=== PATIENT | female | born 1960 | race Caucasian/White ===

== ENCOUNTER 2019-09-10 12:47 | Emergency (ER) | payer MEDICARE, MEDICAID, SELFPAY ==
--- NOTE | ~2019-09-10 | XR_ITS ---
EXAMINATION: [id number] DATE: 09/10/2019 13:24 INDICATION: Left chest pain. TECHNIQUE: A frontal view of the chest and 3 views of the left ribs were obtained. COMPARISON: Chest 2 views 06/21/2015 FINDINGS: The chest demonstrates clear lungs without pneumonia, pleural effusion, or pneumothorax. Th e heart size is normal. There is an old healed fracture of left seventh rib. There is an acute fractu re of left ninth rib. IMPRESSION: 1. Acute fracture of left ninth rib. Reviewed, dictated and finalized at location A.
[2019-09-10 13:04] VITALS: BP 126/74; PULSE 73; RESP 20; TEMP 37.2; O2SAT 98
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
== END 2019-09-10 13:48 | disposition home or self-care (01) ==
PROVIDERS: Emergency Provider Nurse Practitioner Family
DX: S22.32XA Fracture of one rib, left side, initial encounter for closed fracture (principal); F17.200 Nicotine dependence, unspecified, uncomplicated; Z86.73 Personal history of transient ischemic attack (TIA), and cerebral infarction without residual deficits; E78.00 Pure hypercholesterolemia, unspecified; I10 Essential (primary) hypertension; J44.9 Chronic obstructive pulmonary disease, unspecified; K21.9 Gastro-esophageal reflux disease without esophagitis; M19.90 Unspecified osteoarthritis, unspecified site; E03.9 Hypothyroidism, unspecified; F31.9 Bipolar disorder, unspecified; F41.9 Anxiety disorder, unspecified; G40.909 Epilepsy, unspecified, not intractable, without status epilepticus; X58.XXXA Exposure to other specified factors, initial encounter
CPT/HCPCS: 71101; 99213; G0463

== ENCOUNTER 2021-06-23 09:56 | Emergency (ER) | payer MEDICARE, MEDICAID, SELFPAY ==
--- NOTE | ~2021-06-23 | XR_ITS ---
XR foot RT min 3V DATE: 06/23/2021 10:21 INDICATION: Inversion injury. Generalized right ankle and foot pain TECHNIQUE: 5 views COMPARISON: None FINDINGS: There is an old healed fracture deformity of the fifth metatarsal shaft. Plantar calcaneal enthesopathy. No recent fracture or dislocation, periosteal reaction or bone destruction. IMPRESSION: No recent fracture or dislocation Plantar calcaneal enthesopathy Old healed right fifth metatarsal shaft fracture Reviewed, dictated and finalized at location A.
--- NOTE | ~2021-06-23 | XR_ITS ---
XR ankle RT min 3V DATE: 06/23/2021 10:21 INDICATION: Inversion injury. Generalized right ankle and foot pain. TECHNIQUE: 4 views of right ankle COMPARISON: None FINDINGS: Plantar calcaneal enthesopathy. No fracture or dislocation of the ankle or disruption of the ankle mortise. No periosteal reaction or bone destruction. IMPRESSION: No fracture or dislocation of the ankle Plantar calcaneal enthesopathy Reviewed, dictated and finalized at location A.
--- NOTE | 2021-06-23 10:01 | ED.LOWEXIN ---
HPI - Extremity Injury (Lower) General Chief Complaint: Extremity Injury, Lower Stated Complaint: Fall injury/Right Foot Time Seen by Provider: 06/23/21 10:01 Source: patient and RN notes reviewed History of Present Illness HPI Narrative: Patient is a 61-year-old female who presents the urgent care with complaints of right foot and ankle pain. Patient states that at 730 last night she rolled the right foot/ankle and fell. Patient denies of any other injuries from the fall. States that she is taking Tylenol for the pain. No other acute complaints. No acute distress noted. Patient aware of the plan of care. Some parts of this dictation were generated by voice recognition software and may contain typographical and/or grammatical inaccuracies. Related Data Home Medications Medication Instructions Recorded Confirmed levothyroxine 09/10/19 omeprazole 09/10/19 amitriptyline 25 mg PO BID 06/23/21 06/23/21 diltiazem HCl [DILT-XR] 120 mg PO DAILY 06/23/21 06/23/21 gabapentin [Neurontin] 600 mg PO DAILY 06/23/21 06/23/21 methocarbamol 500 mg PO BID 06/23/21 06/23/21 pravastatin 20 mg PO DAILY 06/23/21 06/23/21 Allergies Allergy/AdvReac Type Severity Reaction Status Date / Time carbamazepine Allergy Unknown Unknown Verified 06/23/21 10:13 divalproex sodium Allergy Unknown Unknown Verified 06/23/21 10:13 ibuprofen Allergy Unknown Unknown Verified 06/23/21 10:13 NSAIDS (Non-Steroidal Allergy Unknown Unknown Verified 06/23/21 10:13 Anti-Inflamma Penicillins Allergy Unknown Unknown Verified 06/23/21 10:13 NAPROXEN SODIUM Allergy Unknown Unknown Uncoded 06/23/21 10:13 PHENYTOIN SODIUM Allergy Unknown Unknown Uncoded 06/23/21 10:13 Review of Systems Review of Systems: CONSTITUTIONAL: Denies fever, chills, or sweats. EYES: Denies visual changes, redness, or discharge. ENT: Denies rhinorrhea, congestion, sore throat, or otalgia. CARDIOVASCULAR: Denies chest pain, palpitations, or edema. RESPIRATORY: Denies cough or dyspnea. GASTROINTESTINAL: Denies abdominal pain, nausea, vomiting, or diarrhea. GENITOURINARY: Denies dysuria or hematuria. SKIN: Denies rash or itching. MUSCULOSKELETAL: Reports of pain and swelling to the right ankle and foot NEUROLOGIC: Denies headache, numbness, or weakness. All other systems reviewed are negative, except as documented in HPI. [facility] Family History Family History (Updated 10/21/15 @ 23:21 by DOCTOR UNKNOWN) Mother Family history of suicide Patient's mother is Sibling Patient's sister is in good health Patient's brother is in good health Family history of heart disease in male family member before age 55 Father Family history of chronic obstructive pulmonary disease Family history of diabetes mellitus in first degree relative Family history of heart disease in male family member before age 55 Other Carcinoma of colon Family history of cardiovascular disease Social History Social History Smoking status: Current every day smoker Alcohol intake: current Comments At the time of my signature, I reviewed and agree with the nursing past medical, surgical, social, and family history. There is no relevant family history pertinent to the patient complaint. Exam Narrative: GENERAL: This is a well-nourished, well-developed patient, in no apparent distress. HEAD: normocephalic, atraumatic. EYES: PERRL. Sclera clear/white. Vision is grossly intact. EARS: External ears normal NOSE: External nose normal with no obvious nasal discharge, nares without redness, no rhinorrhea. THROAT: Mucous membranes moist, posterior pharynx clear. NECK: Neck supple CARDIOVASCULAR: Regular rate and rhythm without murmurs, gallops, or rubs. RESPIRATORY: Clear to auscultation. Breath sounds equal bilaterally. No wheezes, rales, or rhonchi. SKIN: 0.25 cm scabbed abrasion to the lateral aspect of the right malleolus. Warm, intact with no suspicious lesions or rash, good texture and turgor.
[2021-06-23 10:09] VITALS: BP 128/78; PULSE 83; RESP 16; TEMP 36.1; O2SAT 98
== END 2021-06-23 10:55 | disposition home or self-care (01) ==
PROVIDERS: Emergency Provider Nurse Practitioner Family; PCP Hospitalist
DX: S93.401A Sprain of unspecified ligament of right ankle, initial encounter (principal); S96.911A Strain of unspecified muscle and tendon at ankle and foot level, right foot, initial encounter; X50.9XXA Other and unspecified overexertion or strenuous movements or postures, initial encounter; S93.601A Unspecified sprain of right foot, initial encounter; F17.200 Nicotine dependence, unspecified, uncomplicated; Z86.73 Personal history of transient ischemic attack (TIA), and cerebral infarction without residual deficits; G40.909 Epilepsy, unspecified, not intractable, without status epilepticus; E78.00 Pure hypercholesterolemia, unspecified; I10 Essential (primary) hypertension; J44.9 Chronic obstructive pulmonary disease, unspecified; K21.9 Gastro-esophageal reflux disease without esophagitis; M79.7 Fibromyalgia; E03.9 Hypothyroidism, unspecified; F32.A Depression, unspecified
CPT/HCPCS: 73610; 73630; 99213; G0463

== ENCOUNTER 2021-09-13 11:09 | Outpatient (CLI) | payer MEDICARE, MEDICAID, SELFPAY ==
--- NOTE | ~2021-09-13 | XR_ITS ---
EXAMINATION: XR ribs BI 3V w CXR 2V INDICATION: Pleurodynia TECHNIQUE: Frontal and lateral views of the chest and 3 views of the bilateral ribs were obtained. COMPARISON: 06/21/2015 FINDINGS: The lungs are free of acute opacities. No pleural effusion or pneumothorax. The cardiomedia stinal silhouette is normal. No displaced rib fracture is identified. Mild cortical irregularity and some left-sided ribs could reflect healed fractures. There is mild thoracic spondylosis. IMPRESSION: 1. No acute cardiopulmonary abnormality or evidence of displaced rib fracture. Reviewed, dictated and finalized at location A.
[2021-09-13 20:02] LABS: Hematocrit 51.4 % (37.0-47.0); Hemoglobin 16.9 g/dL (12.0-15.0); Mean Corpuscular HGB Conc 32.9 g/dl (32-36); Mean Corpuscular Hemoglobin 30.9 pg (26-34); Mean Platelet Volume 10.1 fl (7.4-10.4); Platelet Count Result 347 k/mm3 (150-375); Red Blood Count 5.47 M/mm3 (4.2-5.4); Red Cell Distribution Width 13.9 % (11.5-14.5); White Blood Count 8.2 K/mm3 (4.5-10.0)
[2021-09-13 20:31] LABS: Alanine Aminotransferase 20 U/L (6-35); Albumin Level 4.8 g/dL (3.5-5.1); Alkaline Phosphatase 74 U/L (38-126); Anion Gap 7 mmol/L (8-16); Aspartate Amino Transferase 20 U/L (14-36); Bilirubin,Total 0.2 mg/dL (0.2-1.3); Blood Urea Nitrogen 14 mg/dL (7-17); Calcium 9.4 mg/dL (8.4-10.2); Carbon Dioxide 27 mmol/L (22-30); Chloride 106 mmol/L (98-107); Cholesterol 249 mg/dL (0-200); Estimated Glomerular Filt Rate > 60; Glucose 106 mg/dL (65-110); HDL Direct 51 mg/dL; Potassium 4.3 mmol/L (3.4-5.0); Sodium 140 mmol/L (137-145); Triglycerides 143 mg/dL (<150)
[2021-09-13 20:42] LABS: LDL Cholesterol Direct 167 mg/dL
[2021-09-13 20:58] LABS: Thyroid Stimulating Hormone 0.239 uIU/mL (0.465-4.680)
[2021-09-17 13:13] LABS: Amphetamines NEGATIVE ng/mL (<500); Barbiturates NEGATIVE ng/mL (<300); Benzodiazepines NEGATIVE ng/mL (<100); Cocaine Metabolite NEGATIVE ng/mL (<100); Marijuana Metabolite POSITIVE ng/mL (<20); Methadone Metabolite NEGATIVE ng/mL (<100); Opiates NEGATIVE ng/mL (<100); Oxidant NEGATIVE mcg/mL (<200)
== END 2021-09-13 11:10 | disposition home or self-care (01) ==
LOC: ANHBWCIMG 11:16 → ANHBWCLAB 11:21
PROVIDERS: PCP Family Medicine; Visit Provider Family Medicine
DX: Z87.898 Personal history of other specified conditions (principal); Z86.73 Personal history of transient ischemic attack (TIA), and cerebral infarction without residual deficits; K21.9 Gastro-esophageal reflux disease without esophagitis; J44.9 Chronic obstructive pulmonary disease, unspecified; E78.5 Hyperlipidemia, unspecified; F41.9 Anxiety disorder, unspecified; R07.81 Pleurodynia; Z87.81 Personal history of (healed) traumatic fracture; I25.10 Atherosclerotic heart disease of native coronary artery without angina pectoris
CPT/HCPCS: 36415; 71046; 71110; 80053; 80061; 80299; 84443; 85027

== ENCOUNTER 2021-10-10 09:09 | Outpatient (CLI) | payer MEDICARE, MEDICAID, SELFPAY ==
--- NOTE | ~2021-10-10 | CT_ITS ---
EXAMINATION:CT lung screening DATE: 10/10/2021 09:24 INDICATION: Tobacco use. Current smoker with 50 pack year history. TECHNIQUE: Computed tomography (CT) of the chest was performed without intravenous contrast. Automate d exposure control and iterative reconstruction technique were employed. The dose-length product (DLP ) was 105.84 mGy-cm. COMPARISON: Chest CT 07/21/2014 FINDINGS: The lungs demonstrate minimal atelectasis. There is mild emphysema. There is a stable 4 mm nodule at minor fissure. No pleural effusion. The heart size is normal. No pericardial effusion. Ther e are coronary artery calcifications. The bones are unremarkable. IMPRESSION: 1. Lung-RADS category 2: Benign appearance or behavior. Continue annual screening with noncontrast lo w-dose chest CT in 12 months. Reviewed, dictated and finalized at location A. IMPRESSION: 1. Lung-RADS category 2: Benign appearance or behavior. Continue annual screeni ng with noncontrast low-dose chest CT in 12 months.
== END 2021-10-10 09:10 | disposition home or self-care (01) ==
PROVIDERS: PCP Family Medicine; Visit Provider Family Medicine
DX: Z12.2 Encounter for screening for malignant neoplasm of respiratory organs (principal); Z87.891 Personal history of nicotine dependence
CPT/HCPCS: 71271

== ENCOUNTER 2022-02-27 16:24 | Outpatient (CLI) | payer MEDICARE, MEDICAID, SELFPAY ==
--- NOTE | ~2022-02-27 | XR_ITS ---
EXAMINATION: XR abdomen obstructive series DATE: 02/27/2022 16:35 INDICATION: Chronic right lower abdominal pain TECHNIQUE: Supine and upright views of the abdomen. FINDINGS: 08/11/2013 The visualized lung parenchyma is normal.. There is a nonobstructive bowel gas pattern. Moderate qamar ined fecal material in the colon. Gas and stool are seen throughout the colon to the level of the rec anne. There is no free air. IMPRESSION: 1. No acute abdominal abnormality. Reviewed, dictated and finalized at location A. [employer]
== END 2022-02-27 16:25 | disposition home or self-care (01) ==
LOC: ANHBWCIMG 16:25
PROVIDERS: PCP Family Medicine; Visit Provider Family Medicine
DX: R10.31 Right lower quadrant pain (principal)
CPT/HCPCS: 74019

== ENCOUNTER 2022-04-12 13:37 | Outpatient (CLI) | payer MEDICARE, MEDICAID, SELFPAY ==
[2022-04-12 19:50] LABS: Hematocrit 50.2 % (37.0-47.0); Hemoglobin 16.5 g/dL (12.0-15.0); Mean Corpuscular HGB Conc 32.9 g/dl (32-36); Mean Corpuscular Hemoglobin 30.4 pg (26-34); Mean Corpuscular Volume 92.6 fl (80-100); Mean Platelet Volume 10.5 fl (7.4-10.4); Platelet Count Result 325 k/mm3 (150-375); Red Blood Count 5.42 M/mm3 (4.2-5.4); Red Cell Distribution Width 13.7 % (11.5-14.5); White Blood Count 9.6 K/mm3 (4.5-10.0)
[2022-04-12 19:52] LABS: Add Urine Microscopic? YES; Appearance Urine Clear (Clear); Bilirubin Urine Negative (Negative); Blood Urine Trace-intact (Negative); Color Urine Yellow (Yellow); Glucose Urine UA Negative (Negative); Ketones Urine Negative (Negative); Leukocyte Esterase Ur Negative LEU/UL (NEGATIVE); Nitrate Urine Negative (Negative); Protein Urine Negative (Negative); Specific Grav Ur 1.025 (1.001-1.035); Urobilinogen Urine 0.2 mg/dL (<2.0); pH Urine 6.5 (5.0-9.0)
[2022-04-12 20:11] LABS: Bacteria Urine Trace /hpf; Mucus Urine Rare /lpf; RBC Urine 0-2 /hpf (0-2); Squamous Epithelial Cell Urine Occasional /hpf (Few); WBC Urine 0-3 /hpf (0-3)
== END 2022-04-12 13:38 | disposition home or self-care (01) ==
LOC: ANHBWCLAB 13:39
PROVIDERS: PCP Family Medicine; Visit Provider Family Medicine
DX: D58.2 Other hemoglobinopathies (principal); E03.9 Hypothyroidism, unspecified; R79.89 Other specified abnormal findings of blood chemistry; R10.9 Unspecified abdominal pain; R35.0 Frequency of micturition
CPT/HCPCS: 36415; 81001; 84443; 85027; 87086

== ENCOUNTER 2022-05-29 01:37 | Day surgery (SDC) | payer MEDICARE, MEDICAID, SELFPAY ==
[2022-05-15 13:46] VITALS: BMI 28.3
[2022-05-29 09:30] VITALS: BP 151/103; PULSE 89; RESP 18; TEMP 35.6; O2SAT 98; BMI 26.9
[2022-05-29] MEDS: LACTATED RINGERS 1,000 ML 150 ML IV CONT (09:46)
--- NOTE | 2022-05-29 10:05 | PM.HPGS ---
History of Present Illness History of Present Illness Consent: Risks, benefits, and alternatives have been discussed and questions answered. Patient agrees to proceed with procedure. Chief complaint: Abdominal Pain, Ulcerative Colitis, IBS Narrative: Divine Sosa is a 61 year old female Referred for colonoscopy an EGD. Patient has a history of bipolar illness. She has very poor historian. She complains of rather vague right-sided low bilateral and upper abdominal discomfort. The description of pain is poorly described. Appears to be intermittent but then sometimes constant. Her bowel habits appear to be formed stools but several times a day. No bleeding is described. Patient gives a prior history of being diagnosed with ulcerative colitis in all times several years ago. She has been on no medications for this for at least several years. It is uncertain what she was previously treated with. Apparently she had a previous EGD several years ago that was unremarkable. Patient is quite anxious and complains of ongoing pain is now referred for both colonoscopy an EGD. Medications currently prescribed include famotidine and omeprazole apparently for her abdominal pain. She also takes dicyclomine presumably for irritable bowel syndrome. Patient is uncertain if these have made any impact on her discomfort. Review of Systems Review of Systems: Review of systems noncontributory. [facility] Family History Family History (System 06/26/21 @ 08:29 by Krishna Lee) Mother Family history of suicide Patient's mother is Sibling Patient's sister is in good health Patient's brother is in good health Family history of heart disease in male family member before age 55 Father Family history of chronic obstructive pulmonary disease Family history of diabetes mellitus in first degree relative Family history of heart disease in male family member before age 55 Other Carcinoma of colon Family history of cardiovascular disease Social History Social History (Updated 02/27/22 @ 16:01 by Brie Acuna MA) Smoking packs per day: 2 Smoking cigarettes per day: 40.0 Years smoked: 50 Smoking pack-years: 100.00 Smoking status: Current every day smoker Tobacco type: cigarettes Alcohol intake: never Substance use: never Substance use type: marijuana Other substance usage details: daily smoking Lack of Transportation: No Lack of Food: Sometimes True Current Housing: I Have Housing Concerned About Future Housing: YES Difficulty Paying Gas/Electric Bills: YES Difficulty Paying for Meds: YES Currently Unemployed: YES Education: High School Diploma/GED Difficulty w/ Childcare or Family Care: No Living arrangements: with family Gender identity (if verbalized by the patient): Female Spiritual care concerns: No Agree to blood products: Yes Meds Home Medications and Allergies Home Medications Medication Instructions Recorded Confirmed Type pravastatin 20 mg tablet 20 mg PO DAILY 06/23/21 05/29/22 History Nitro Glycerin 1 tab-cap BYMOUTH PRN PRN Chest 09/13/21 05/29/22 History Pain gabapentin 600 mg tablet 600 mg PO DAILY #90 tabs 01/15/22 05/29/22 Rx (Neurontin) albuterol sulfate 90 mcg/actuation 1 puff inhalation Q6H PRN 02/26/22 05/29/22 Rx aerosol inhaler bronchospasm #8.5 grams amitriptyline 25 mg tablet 25 mg PO BID #60 tabs 02/26/22 05/29/22 Rx duloxetine 30 mg capsule,delayed 30 mg PO BID #90 caps 02/26/22 05/29/22 Rx release fluticasone propionate 115 2 puff inhalation BID #12 grams 02/26/22 05/29/22 Rx mcg-salmeterol 21 mcg/actuation HFA inhaler (Advair HFA) levothyroxine 112 mcg tablet 112 mcg PO DAILY #30 tabs 02/26/22 05/29/22 Rx tizanidine 4 mg capsule 4 mg PO Q6H PRN muscle spasticity 02/26/22 05/29/22 Rx #30 caps dicyclomine 10 mg capsule 10 mg PO TID PRN abdominal 04/12/22 05/29/22 Rx cramping #20 caps diltiazem HCl 120 mg 120 m
--- NOTE | 2022-05-29 10:27 | WPDANESEPPF ---
Anes - Initial Pre Proc Eval Procedure: Operation Date: 05/29/22 11:00 Proposed Procedures p Esophagogastroduodenoscopy & Colonoscopy - Kieran Gann MD Date/Time: 05/29/22 10:27 Surgeon: Kieran Gann MD Pre Op Diagnosis: Abdominal Pain, Ulcerative Colitis, IBS Patient Data Age: 61 Gender: F Height: 1.63 m Weight: 71.2 kg Last Vital Signs Temp 96.1 F L 05/29/22 09:30 Pulse 89 05/29/22 09:30 Resp 18 05/29/22 09:30 BP 151/103 H 05/29/22 09:30 Pulse Ox 98 05/29/22 09:30 O2 Del Method Room Air 05/29/22 09:30 Allergies Allergy/AdvReac Type Severity Reaction Status Date / Time carbamazepine Allergy Unknown Fever Verified 05/29/22 09:35 divalproex sodium Allergy Unknown Fever Verified 05/29/22 09:35 ibuprofen Allergy Unknown Itching Verified 05/29/22 09:35 NSAIDS (Non-Steroidal Allergy Unknown Itching Verified 05/29/22 09:35 Anti-Inflamma Penicillins Allergy Unknown Hives Verified 05/29/22 09:35 NAPROXEN SODIUM Allergy Unknown Itching Uncoded 05/29/22 09:35 PHENYTOIN SODIUM Allergy Unknown Fever Uncoded 05/29/22 09:35 Home Medications Medication Instructions Recorded Confirmed Type pravastatin 20 mg tablet 20 mg PO DAILY 06/23/21 05/29/22 History Nitro Glycerin 1 tab-cap BYMOUTH PRN PRN Chest 09/13/21 05/29/22 History Pain gabapentin 600 mg tablet 600 mg PO DAILY #90 tabs 01/15/22 05/29/22 Rx (Neurontin) albuterol sulfate 90 mcg/actuation 1 puff inhalation Q6H PRN 02/26/22 05/29/22 Rx aerosol inhaler bronchospasm #8.5 grams amitriptyline 25 mg tablet 25 mg PO BID #60 tabs 02/26/22 05/29/22 Rx duloxetine 30 mg capsule,delayed 30 mg PO BID #90 caps 02/26/22 05/29/22 Rx release fluticasone propionate 115 2 puff inhalation BID #12 grams 02/26/22 05/29/22 Rx mcg-salmeterol 21 mcg/actuation HFA inhaler (Advair HFA) levothyroxine 112 mcg tablet 112 mcg PO DAILY #30 tabs 02/26/22 05/29/22 Rx tizanidine 4 mg capsule 4 mg PO Q6H PRN muscle spasticity 02/26/22 05/29/22 Rx #30 caps dicyclomine 10 mg capsule 10 mg PO TID PRN abdominal 04/12/22 05/29/22 Rx cramping #20 caps diltiazem HCl 120 mg 120 mg PO DAILY #90 caps 05/09/22 05/29/22 Rx capsule,extended release 24 hr, controlled (DILT-XR) famotidine 20 mg tablet (Pepcid) 20 mg PO DAILY #90 tabs 05/09/22 05/29/22 Rx hydroxyzine HCl 50 mg tablet 50 mg PO TID PRN anxiety , severe 05/14/22 05/29/22 Rx #90 tabs omeprazole 40 mg capsule,delayed 40 mg PO DAILY 05/15/22 05/29/22 History release hydrocodone 5 mg-acetaminophen 325 1 tablet PO Q8H PRN pain #20 tabs 05/16/22 05/29/22 Rx mg tablet Patient hx anesthesia problems: none Family hx anesthesia problems: none Results Review: All pre-operative results and documents have been reviewed as part of the pre-operative evaluation. [facility] Family History Family History (System 06/26/21 @ 08:29 by Krishna Lee) Mother Family history of suicide Patient's mother is Sibling Patient's sister is in good health Patient's brother is in good health Family history of heart disease in male family member before age 55 Father Family history of chronic obstructive pulmonary disease Family history of diabetes mellitus in first degree relative Family history of heart disease in male family member before age 55 Other Carcinoma of colon Family history of cardiovascular disease Social History Social History (Updated 02/27/22 @ 16:01 by Brie Acuna MA) Smoking packs per day: 2 Smoking cigarettes per day: 40.0 Years smoked: 50 Smoking pack-years: 100.00 Smoking status: Current every day smoker Tobacco type: cigarettes Alcohol intake: never Substance use: never Substance use type: marijuana Other substance usage details: daily smoking Lack of Transportation: No Lack of Food: Sometimes True Current Housing: I Have Housing Concerned About Future Housing: YES Difficulty Paying Gas/Electric Bills: YES Di
[2022-05-29] MEDS: SIMETHICONE ORAL SUSPENSION 20 MG/0.3 ML 30 ML BOTTLE 0.6 ML IRRIGATION (10:56)
[2022-05-29 11:07] VITALS: BP 121/80; PULSE 81; RESP 22; O2SAT 99
[2022-05-29 11:17] VITALS: BP 127/81; PULSE 79; RESP 21; O2SAT 97
[2022-05-29 11:27] VITALS: BP 125/80; PULSE 76; RESP 22; O2SAT 98
== END 2022-05-29 11:40 | disposition home or self-care (01) ==
PROVIDERS: PCP Family Medicine; Visit Provider Internal Medicine Gastroenterology
PROC: 0DJ08ZZ Inspection of Upper Intestinal Tract, Via Natural or Artificial Opening Endoscopic (ICD-10-PCS; CPT 43235; principal; 2022-05-29 11:00)
DX: K51.90 Ulcerative colitis, unspecified, without complications (principal); K64.8 Other hemorrhoids; K57.30 Diverticulosis of large intestine without perforation or abscess without bleeding; G89.4 Chronic pain syndrome; R10.9 Unspecified abdominal pain; F31.9 Bipolar disorder, unspecified; Z79.51 Long term (current) use of inhaled steroids; Z79.891 Long term (current) use of opiate analgesic; F17.210 Nicotine dependence, cigarettes, uncomplicated; F12.90 Cannabis use, unspecified, uncomplicated
CPT/HCPCS: 45380; 43239; 87081; 88305; J2704; J7120

== ENCOUNTER 2022-11-07 19:08 | Emergency (ER) | payer MEDICARE, MEDICAID, SELFPAY ==
--- NOTE | ~2022-11-07 | XR_ITS ---
EXAM: XR lumbar spine 2-3V DATE: 11/07/2022 19:30 HISTORY: GEN LBP radiating to RT thigh, fall on trampoline . COMPARISON: CT abdomen pelvis 03/02/2014. FINDINGS: Atherosclerotic aortic calcifications, without evident aneurysm. Mild lumbar scoliosis. De creased mineralization. Multilevel disc space narrowing and marginal osteophytosis, mild at L3-4 and L4-5, moderate at L5-S1 where there is also vacuum disc phenomenon. 4 mm anterolisthesis at L5-S1. No rmal alignment otherwise preserved. Moderate lower lumbar facet arthropathy. Bilateral pars defects a t L5. No definite fracture or traumatic malalignment. IMPRESSION: Grade 1 anterolisthesis at L5-S1, secondary to bilateral L5 pars defects. Multilevel degenerative disc disease, severe at L5-S1. Reviewed, dictated and finalized at location K.
--- NOTE | 2022-11-07 19:10 | ED.BACK ---
HPI - Back Pain/Injury General Chief Complaint: Back Pain/Injury Stated Complaint: back pain from trampoline Time Seen by Provider: 11/07/22 19:09 Source: patient Mode of arrival: ambulatory Limitations: no limitations History of Present Illness HPI Narrative: Divine is a 62-year-old female patient presenting to the clinic today with complaints of low back pain after jumping on a trampoline. States she felt a pop in her low back with the pain is radiating down into right thigh. She denies any saddle anesthesia or numbness or tingling in her groin. Denies any loss of bowel or bladder. States that the pain is worse when she is setting however when she lies flat she is more comfortable. Rates her pain currently a 9/10 currently. Related Data Home Medications Medication Instructions Recorded Confirmed nitroglycerin 0.4 mg sublingual See Rx Instructions .Route 11/07/22 11/07/22 tablet .COMPLEX PRN Chest Pain Allergies Allergy/AdvReac Type Severity Reaction Status Date / Time carbamazepine Allergy Unknown Fever Verified 11/07/22 19:30 divalproex sodium Allergy Unknown Fever Verified 11/07/22 19:30 ibuprofen Allergy Unknown Itching Verified 11/07/22 19:30 NSAIDS (Non-Steroidal Allergy Unknown Itching Verified 11/07/22 19:30 Anti-Inflamma Penicillins Allergy Unknown Hives Verified 11/07/22 19:30 NAPROXEN SODIUM Allergy Unknown Itching Uncoded 11/07/22 19:30 PHENYTOIN SODIUM Allergy Unknown Fever Uncoded 11/07/22 19:30 Review of Systems Review of Systems: Pertinent positives per HPI. Patient denies any fever, chills, rash, headache, visual changes, dizziness, cough, runny nose, sore throat, shortness of breath, chest pain, palpitations, nausea, vomiting, diarrhea, constipation, abdominal pain, or any urinary issues. [facility] Past Medical History Medical History Chronic nausea Colon cancer screening Frequent stools GERD (gastroesophageal reflux disease) Family History Family History Mother Family history of suicide Patient's mother is Sibling Patient's sister is in good health Patient's brother is in good health Family history of heart disease in male family member before age 55 Father Family history of chronic obstructive pulmonary disease Family history of diabetes mellitus in first degree relative Family history of heart disease in male family member before age 55 Other Carcinoma of colon Family history of cardiovascular disease Social History Social History Smoking packs per day: 2 Smoking cigarettes per day: 40.0 Years smoked: 50 Smoking pack-years: 100.00 Smoking status: Current every day smoker Tobacco type: cigarettes Alcohol intake: never Substance use: never Substance use type: marijuana Other substance usage details: daily smoking Lack of Transportation: No Lack of Food: Sometimes True Current Housing: I Have Housing Concerned About Future Housing: YES Difficulty Paying Gas/Electric Bills: YES Difficulty Paying for Meds: No Currently Unemployed: No Education: High School Diploma/GED Difficulty w/ Childcare or Family Care: No Living arrangements: with family Gender identity (if verbalized by the patient): Female Spiritual care concerns: No Agree to blood products: Yes Comments At the time of my signature, I reviewed and agree with the nursing past medical, surgical, social, and family history. There is no relevant family history pertinent to the patient complaint. Exam Narrative: General: Well-developed, well nourished, in no apparent distress Head: Normocephalic, atraumatic. Cardio: Regular rate and rhythm, s1 and s2 normal, no murmur appreciated. Resp: Clear to auscultation bilaterally, no rhonchi, rales, wheezing or rubs. Musculos
[2022-11-07 19:20] VITALS: BP 145/82; PULSE 86; RESP 18; TEMP 36.3; O2SAT 96
== END 2022-11-07 19:40 | disposition home or self-care (01) ==
PROVIDERS: Emergency Provider Nurse Practitioner Family; PCP Family Medicine
DX: M54.41 Lumbago with sciatica, right side (principal); F17.210 Nicotine dependence, cigarettes, uncomplicated; F12.90 Cannabis use, unspecified, uncomplicated; K21.9 Gastro-esophageal reflux disease without esophagitis
CPT/HCPCS: 72100; 99213; G0463

== ENCOUNTER 2023-06-17 15:00 | Outpatient (RCR) | payer MEDICARE, MEDICAID, SELFPAY ==
--- NOTE | 2023-06-05 15:16 | OPREHPOC ---
Outpatient Therapy Plan of Care This is a Multidisciplinary Plan of Care that may contain components documented by all disciplines (PT, OT, and ST.) PT Problem 1 PT Problem #1 Knowledge Deficit PT Goal 1 Goal Pt to be IND with issued HEP Target Visit 8 PT Problem 2 PT Problem #2 Pain PT Goal 1 Goal Pt to report pain no greater than 4/10 in the last week. Target Visit 8 PT Goal 2 Goal Pt to report 50% improvement in overall symptoms. Target Visit 8 PT Problem 3 PT Problem #3 Impaired Range of Motion PT Goal 1 Goal Pt to report no increase in pain with passive hip motion Target Visit 8 PT Goal 2 Goal Pt to report no increase in pain with active lumbar motion Target Visit 8 PT Problem 4 PT Problem #4 Impaired Strength PT Goal 1 Goal Pt to improve hip strength to grossly 4/5.
--- NOTE | 2023-06-05 15:17 | PTOPEVAL1 ---
Assessment and note entered by Kee Horwoitz, PT, DPT Evaluation Information Assessment Status Evaluation Diagnosis Thoracic fracture Onset October 2022 Subjective Information Pt states she broke her back on a trampoline in October. She states she has not seen a doctor since the initial incident. She states she still gets nauseated from the pain, is still on pain pills, and it still takes her breath away. She states she should have been walking with a walker but no one gave her one. She states she knows her back is screwed up now and she is not sure why she is at therapy. Outside of her mid back pain she also reports neck , R hip, and L side abdominal pain. She states she is also starting to have issued having a bowel movements and thinks this is caused from the thoracic fracture. She states she can only stand for 15-20 mins before she needs to sit down, she states after this she has to sit for 4 hours, states this might be because of her depression as well. She states she only leaves her home once a week to play bingo . Reports depression since 2016, worsening in March when her partner of 36 years . Pt is present today with her registered nurse hh case manager Ray from [facility]. Pt took a break during evaluation states she needs to go throw up, came back and stated she just gagged a few times. Reported Pain Level Pain Score 7: Self Report Assessment PT Clinical Summary Divine presents to therapy today for her initial evaluation with a diagnosis of a T11 fracture, as well as multiple other comorbidities and other health complications. Today she reports pain with active trunk motion in all directions, decreased LE strength, decreased endurance, decreased functional mobility, and postural abnormalities. Skilled therapy services are indicated to manage pain, to improve functional mobility, to improve strength, and to progress towards PLOF. Plan of Care Interventions Electrical Stimulation,Gait Training,Hot Pack/Cold Pack,Manual Therapy,Neuro Re-education,Patient/ Caregiver Educati,Therapeutic Activities, Therapeutic Exercise PT Services Indicated Yes Treatment Frequency and 1x/wk for 8 visits Duration These treatments will address the objective and functional deficits as defined above. The patient will be advanced safely and appropriately in order for the patient to progress towards his/her prior level of function. Additional exercises will be introduced and as well as a comprehensive home exercise program upon discharge, if needed, ?to ensure carryover of functional gains achieved in the clinic. This treatment plan has been reviewed and agreement upon by the patient.
--- NOTE | 2023-07-01 08:59 | PCPTNOTE ---
Patient cancelled not feeling well.
--- NOTE | 2023-07-15 13:29 | PTOPDC ---
Assessment and note entered by Kee Horowitz, PT, DPT Evaluation Information Assessment Status Discharge - Pt Not Present Diagnosis Thoracic fracture Onset October 2022 Subjective Information Pt called and cancelled her visit this date and the rest of her remaining visits. She states she is in so much pain that she is going to go to the ER. She thinks she has an issue with one of her organs. She would like to see her doctor prior to continuing therapy. Assessment PT Clinical Summary Divine completed 2 visits of skilled therapy from 06/05/23 to 06/17/23. She will be discharged at this time per pt request.
== END 2023-07-16 09:28 | disposition home or self-care (01) ==
LOC: ANHGOSHPT 15:00
PROVIDERS: PCP Family Medicine; Visit Provider Family Medicine
DX: M54.2 Cervicalgia (principal); S22.089D Unspecified fracture of T11-T12 vertebra, subsequent encounter for fracture with routine healing; M25.559 Pain in unspecified hip; G89.29 Other chronic pain
CPT/HCPCS: 97110; 97161; 97530

== ENCOUNTER 2023-10-09 13:33 | Outpatient (CLI) | payer MEDICARE, MEDICAID, SELFPAY ==
[2023-10-09 20:09] LABS: Basophils Absolute Auto 0.1 K/mm3 (0.0-0.1); Basophils Percent Auto 0.8 % (0.2-1.2); Eosinophils Absolute Auto 0.2 K/mm3 (0-0.3); Eosinophils Percent Auto 2.2 % (0-4.4); Hematocrit 51.6 % (37.0-47.0); Hemoglobin 17.3 g/dL (12.0-15.0); Immature Granulocyte Absolute 0.02 K/mm3 (0.00-0.031); Immature Granulocyte Percent A 0.3 % (0-0.5); Lymphocytes Absolute Auto 2.37 K/mm3 (0.9-3.2); Lymphocytes Percent Auto 31.1 % (18.3-44.2); Mean Corpuscular HGB Conc 33.5 g/dl (32-36); Mean Corpuscular Hemoglobin 31.6 pg (26-34); Mean Corpuscular Volume 94.3 fl (80-100); Mean Platelet Volume 10.6 fl (7.4-10.4); Monocytes Absolute Auto 0.4 K/mm3 (0.1-0.6); Monocytes Percent Auto 5.6 % (2.6-8.5); Neutrophils Absolute Auto 4.6 K/mm3 (1.3-6.7); Platelet Count Result 323 k/mm3 (150-375); Red Blood Count 5.47 M/mm3 (4.2-5.4); Red Cell Distribution Width 13.4 % (11.5-14.5); White Blood Count 7.6 K/mm3 (4.5-10.0)
[2023-10-09 20:31] LABS: Alanine Aminotransferase 19 U/L (6-35); Albumin Level 4.5 g/dL (3.5-5.1); Alkaline Phosphatase 68 U/L (38-126); Anion Gap 8 mmol/L (4-12); Aspartate Amino Transferase 53 U/L (14-36); Bilirubin,Total 0.8 mg/dL (0.2-1.3); Blood Urea Nitrogen 12 mg/dL (7-17); Calcium 9.2 mg/dL (8.4-10.2); Carbon Dioxide 25 mmol/L (22-30); Chloride 103 mmol/L (98-107); Cholesterol 272 mg/dL (0-200); Estimated Glomerular Filt Rate > 60; Glucose 112 mg/dL (65-110); HDL Direct 54 mg/dL; Potassium 4.3 mmol/L (3.4-5.0); Sodium 136 mmol/L (137-145); Triglycerides 147 mg/dL (<150)
[2023-10-09 20:34] LABS: Vitamin D 25 Hydroxy 30.6 ng/mL
[2023-10-09 20:42] LABS: LDL Cholesterol Direct 183 mg/dL
[2023-10-09 20:59] LABS: Thyroid Stimulating Hormone 0.572 uIU/mL (0.465-4.680)
== END 2023-10-09 13:34 | disposition home or self-care (01) ==
PROVIDERS: PCP Family Medicine; Visit Provider Family Medicine
DX: D75.1 Secondary polycythemia (principal); E03.9 Hypothyroidism, unspecified; E78.5 Hyperlipidemia, unspecified; F31.9 Bipolar disorder, unspecified; F43.10 Post-traumatic stress disorder, unspecified; G89.4 Chronic pain syndrome; I25.10 Atherosclerotic heart disease of native coronary artery without angina pectoris; J44.9 Chronic obstructive pulmonary disease, unspecified; K58.9 Irritable bowel syndrome, unspecified; M79.7 Fibromyalgia; R35.0 Frequency of micturition; R79.89 Other specified abnormal findings of blood chemistry; E55.9 Vitamin D deficiency, unspecified
CPT/HCPCS: 36415; 80053; 80061; 82306; 84443; 85025; 85027

== ENCOUNTER 2023-10-10 15:52 | Outpatient (CLI) | payer MEDICARE, MEDICAID, SELFPAY ==
[2023-10-15 14:53] LABS: Amphetamines NEGATIVE ng/mL (<500); Barbiturates NEGATIVE ng/mL (<300); Benzodiazepines NEGATIVE ng/mL (<100); Cocaine Metabolite NEGATIVE ng/mL (<150); Codeine NEGATIVE ng/mL (<50); Hydrocodone 192 ng/mL (<50); Hydromorphone NEGATIVE ng/mL (<50); Marijuana Metabolite 487 ng/mL (<5); Methadone Metabolite NEGATIVE ng/mL (<100); Morphine NEGATIVE ng/mL (<50); Norhydrocodone 204 ng/mL (<50); Opiates POSITIVE ng/mL (<100); Oxidant NEGATIVE mcg/mL (<200)
== END 2023-10-10 15:53 | disposition home or self-care (01) ==
PROVIDERS: PCP Family Medicine; Visit Provider Family Medicine
DX: S22.089A Unspecified fracture of T11-T12 vertebra, initial encounter for closed fracture (principal); G89.4 Chronic pain syndrome; X58.XXXA Exposure to other specified factors, initial encounter
CPT/HCPCS: 80299

== ENCOUNTER 2023-11-05 10:21 | Outpatient (CLI) | payer MEDICARE, MEDICAID, SELFPAY ==
--- NOTE | ~2023-11-05 | CT_ITS ---
CT abdomen pelvis wo con Ordering provider: Jose Roberto Uribe MD History: 63 years Female with . R10.9 - Unspecified abdominal pain . Comparison: March 02, 2014 Technique: CT abdomen and pelvis with IV and without oral contrast. Automated exposure control and it erative reconstruction technique were employed. The dose-length product was 426.32 mGy-cm. Findings: VISUALIZED LOWER CHEST: Normal. UPPER ABDOMINAL ORGANS: Liver: Slightly increased density. Gallbladder: Normal. Spleen: Normal. Stomach/duodenum: Normal. Pancreas: Normal. Adrenals: Slightly prominent left adrenal gland. Kidneys: Normal. PELVIC ORGANS: The bladder is normal. BOWEL AND MESENTERY: Colon: No evidence of diverticulitis. Normal appendix. Small Bowel: Normal. No obstruction. Peritoneum/mesentery: No free air or free fluid. No mesenteric lymphadenopathy. RETROPERITONEUM: Mild atheromatous disease of the abdominal aorta. Focal area of dilatation in the a juany which measures 2.5 cm. No retroperitoneal lymphadenopathy. MUSCULOSKELETAL: Superficial soft tissues: The superficial soft tissues are normal. Bones: Age appropriate degenerative changes of the spine. Minimal anterolisthesis at the level of L5- S1 with bilateral spondylolysis. Anterior loss of height of T11 is noted with slightly sclerotic stewart ges most likely chronic compression. IMPRESSION: 1. No evidence of appendicitis or intestinal obstruction. 2. Diverticulosis of the colon with no diverticulitis. 3. Slightly increased density of the liver. Clinical correlation advised. Reviewed, dictated and finalized at location A.
== END 2023-11-05 10:22 ==
PROVIDERS: PCP Family Medicine; Visit Provider Family Medicine
DX: R10.9 Unspecified abdominal pain (principal); G89.4 Chronic pain syndrome; K51.90 Ulcerative colitis, unspecified, without complications; K52.9 Noninfective gastroenteritis and colitis, unspecified; R11.0 Nausea; K57.30 Diverticulosis of large intestine without perforation or abscess without bleeding
CPT/HCPCS: 74176

== ENCOUNTER 2023-11-13 15:28 | Outpatient (CLI) | payer MEDICARE, MEDICAID, SELFPAY ==
[2023-11-13 15:40] LABS: Basophils Absolute Auto 0.1 K/mm3 (0.0-0.1); Basophils Percent Auto 0.6 % (0.2-1.2); Eosinophils Absolute Auto 0.2 K/mm3 (0-0.3); Eosinophils Percent Auto 1.9 % (0-4.4); Hematocrit 49.5 % (37.0-47.0); Hemoglobin 16.2 g/dL (12.0-15.0); Immature Granulocyte Absolute 0.03 K/mm3 (0.00-0.031); Immature Granulocyte Percent A 0.3 % (0-0.5); Lymphocytes Absolute Auto 2.71 K/mm3 (0.9-3.2); Lymphocytes Percent Auto 30.2 % (18.3-44.2); Mean Corpuscular HGB Conc 32.7 g/dl (32-36); Mean Corpuscular Hemoglobin 31.2 pg (26-34); Mean Corpuscular Volume 95.4 fl (80-100); Mean Platelet Volume 9.3 fl (7.4-10.4); Monocytes Absolute Auto 0.5 K/mm3 (0.1-0.6); Monocytes Percent Auto 5.6 % (2.6-8.5); Neutrophils Absolute Auto 5.5 K/mm3 (1.3-6.7); Neutrophils Percent Auto 61.4 % (45.5-73.1); Platelet Count Result 323 k/mm3 (150-375); Red Blood Count 5.19 M/mm3 (4.2-5.4)
[2023-11-13 16:34] LABS: Alanine Aminotransferase 18 U/L (6-35); Albumin Level 4.4 g/dL (3.5-5.1); Alkaline Phosphatase 63 U/L (38-126); Anion Gap 10 mmol/L (4-12); Aspartate Amino Transferase 20 U/L (14-36); Bilirubin,Total 0.6 mg/dL (0.2-1.3); Blood Urea Nitrogen 14 mg/dL (7-17); Calcium 9.3 mg/dL (8.4-10.2); Carbon Dioxide 26 mmol/L (22-30); Chloride 102 mmol/L (98-107); Estimated Glomerular Filt Rate > 60; Glucose 76 mg/dL (65-110); Potassium 3.9 mmol/L (3.4-5.0); Sodium 138 mmol/L (137-145)
[2023-11-18 12:17] LABS: Erythropoietin (EPO) 7.9 mIU/mL (2.6-18.5)
[2023-11-19 17:29] LABS: Hydrocodone 172
[2023-11-19 17:30] LABS: Norhydrocodone 269
[2023-11-21 13:44] LABS: Amphetamine NEGATIVE ng/mL (<250); Amphetamines POSITIVE ng/mL (<500); Barbiturates NEGATIVE ng/mL (<300); Benzodiazepines NEGATIVE ng/mL (<100); Cocaine Metabolite NEGATIVE ng/mL (<150); Codeine NEGATIVE ng/mL (<50); D Methamphetamine 100 %; Hydromorphone NEGATIVE ng/mL (<50); L Methamphetamine 0 %; Marijuana Metabolite 995 ng/mL (<5); Methadone Metabolite NEGATIVE ng/mL (<100); Morphine NEGATIVE ng/mL (<50); Opiates POSITIVE ng/mL (<100); Oxidant NEGATIVE mcg/mL (<200)
== END 2023-11-13 15:29 | disposition home or self-care (01) ==
LOC: ANHLAB 15:30
PROVIDERS: Nurse Practitioner Family; PCP Family Medicine; Visit Provider Internal Medicine Hematology & Oncology
DX: D75.1 Secondary polycythemia (principal); Z02.83 Encounter for blood-alcohol and blood-drug test
CPT/HCPCS: 36415; 80053; 80299; 82668; 85025

== ENCOUNTER 2024-03-09 13:59 | Outpatient (CLI) | payer MEDICARE, MEDICAID, SELFPAY ==
--- NOTE | ~2024-03-09 | CT_ITS ---
EXAMINATION:CT lung screening DATE: 03/09/2024 14:17 INDICATION: Personal history of nicotine dependence. Current smoker with 104 pack year history. TECHNIQUE: Computed tomography (CT) of the chest was performed without intravenous contrast. Automate d exposure control and iterative reconstruction technique were employed. The dose-length product (DLP ) was 72.98 mGy-cm. COMPARISON: Chest CT 10/10/2021 FINDINGS: There is a 4 mm nodule at minor fissure without change. There is no pneumonia or pleural ef fusion. The heart size is normal. There are coronary artery calcifications. No pericardial effusion. There is mild thoracic spondylosis. There is a chronic compression fracture of T11. IMPRESSION: 1. Lung-RADS category 2: Benign appearance or behavior. Continue annual screening with noncontrast lo w-dose chest CT in 12 months. Reviewed, dictated and finalized at location A. PROJECTS SUPERVISOR IMPRESSION: 1. Lung-RADS category 2: Benign appearance or behavior. Continue annual screeni ng with noncontrast low-dose chest CT in 12 months.
== END 2024-03-09 14:00 | disposition home or self-care (01) ==
PROVIDERS: PCP Family Medicine; Visit Provider Internal Medicine Hematology & Oncology
DX: D75.1 Secondary polycythemia (principal); Z87.891 Personal history of nicotine dependence
CPT/HCPCS: 71271

== ENCOUNTER 2024-08-31 10:03 | Outpatient (CLI) | payer MEDICARE, MEDICAID, SELFPAY ==
[2024-08-31 10:14] LABS: Basophils Absolute Auto 0.1 K/mm3 (0.0-0.1); Basophils Percent Auto 0.6 % (0.2-1.2); Eosinophils Absolute Auto 0.2 K/mm3 (0-0.3); Eosinophils Percent Auto 2.2 % (0-4.4); Hematocrit 45.9 % (37.0-47.0); Hemoglobin 15.2 g/dL (12.0-15.0); Immature Granulocyte Absolute 0.02 K/mm3 (0.00-0.031); Immature Granulocyte Percent A 0.2 % (0-0.5); Lymphocytes Absolute Auto 2.22 K/mm3 (0.9-3.2); Mean Corpuscular HGB Conc 33.1 g/dl (32-36); Mean Corpuscular Hemoglobin 31.3 pg (26-34); Mean Corpuscular Volume 94.6 fl (80-100); Mean Platelet Volume 9.6 fl (7.4-10.4); Monocytes Absolute Auto 0.6 K/mm3 (0.1-0.6); Neutrophils Absolute Auto 5.5 K/mm3 (1.3-6.7); Platelet Count Result 308 k/mm3 (150-375); Red Blood Count 4.85 M/mm3 (4.2-5.4); Red Cell Distribution Width 13.8 % (11.5-14.5); White Blood Count 8.5 K/mm3 (4.5-10.0)
--- OUTSIDE RECORDS SUMMARY | 2024-08-31 11:11 | XMS_ITS | Patient Health Record ---
Author Organization [facility] Address [address] [place] [address] Care Team Providers Care International Trade Specialist Name Role Phone JalenRamon russ Primary Care Provider [phone] Reason For Referral No Information Social History Alcohol Screen (Audit-C) Question Answer Notes Did you have a drink contain ing alcohol in the past year? Yes How often did you have a dri nk containing alcohol in the past year? 4 or more times a week (4 points) How many drinks did you have on a typical day when you were drinking in the past year? 10 or more drinks (4 points) How often did you have 6 or more drinks on one occasion in the past year? Daily or almost daily (4 points) Points 12 Interpretation Positive PRAPARE Question Answer Notes Date Completed/Updated: 01/21/2019 What is your current housing situation? I have h ousing Are you worried about losing your housing? No What is the highest level of school that you have finished? More than high school What is your current work situation? Oth erwise unemployed but not seeking work (ex. student, retired, disabled, unpaid primary morning caregiver) In the past year, have you o r any family members you live with been unable to get any of the following when it was really needed? Check all that apply Food Has lack of transportation k ept you from medical appointments, meetings, work or from getting things needed for daily living? Yes, it has kept me from medical appointments or from getting my medications,Yes, it has kept me from non-medical meetings, appointments, work, or getting things needed for daily living How often do you see or talk to people that you care about and feel close to? (For example: talking to friends on the phone, visiting friends or family, going to protestant or club meetings) More than 5 times a week How stressed are you? Stress is when someone feels tense, nervous, anxious, or can\t sleep at night because their mind is troubled Very much In the past year have you sp ent more than 2 nights in a row in a fci, nursing home, senior living center, or juvenile correctional facility? No Are you a refugee? No What country are you from? [place] Do you feel physically and e motionally safe where you currently live? Yes In the past year, have you b een afraid of your partner or ex-partner? No PRAPARE Score: 8 Problems Problem Type SNOMED Code ICD Code Onset Dates Problem Status W/U Status Risk Notes Problem Alcohol use disorder (2978206870) Alcohol use disorder (F10.99) Active confirmed Problem Opioid use disorder (3392822907) Opioid use disorder (F11.99) Active confirmed Plan Of Treatment No Information Insurance Providers Payer Name Payer Address Payer Phone Subscriber Number Group Number Insured Name Patient Relationship to Insured Coverage Start Date Coverage End Date [facility] [address] [address] [place] [address] [id number] Divine Sosa Self - patient is the insured 9 [address]ICAID [address] [place] [address] [id number] Divine Sosa Self - patient is the insured 9
== END 2024-08-31 10:04 | disposition home or self-care (01) ==
LOC: ANHLAB 10:04
PROVIDERS: PCP Family Medicine; Visit Provider Internal Medicine Hematology & Oncology
DX: D75.1 Secondary polycythemia (principal)
CPT/HCPCS: 36415; 85025

== ENCOUNTER 2025-03-11 14:10 | Outpatient (CLI) | payer MEDICARE, MEDICAID, SELFPAY ==
--- NOTE | ~2025-03-11 | CT_ITS ---
CT lung screening INDICATION: Nicotine dependence, screening COMPARISON: 03/09/2024. TECHNIQUE: CT examination of the entire thorax without contrast was performed using low dose technique. Thin section axial, sagittal and coronal images were included to increase sensitivity for small lung nodules. FINDINGS: PULMONARY NODULES: No suspicious noncalcified pulmonary nodule seen. OTHER PULMONARY FINDINGS: No significant nonnodular pleural or parenchymal abnormality is noted. No emphysematous changes are present. No pathologically enlarged lymph nodes are present. Normal heart size. This limited nondedicated CT there is minimal coronary artery calcifications. UPPER ABDOMEN AND PERIPHERAL SOFT TISSUE: Limited views of the upper abdomen and peripheral soft tissue demonstrated no abnormalities. OSSEOUS STRUCTURES: Bone window shows no aggressive blastic or lytic lesions. IMPRESSION: 1. Lung-RADS category 1: No nodules or definitely benign nodules. Recommendations: 1 or 2: Annual screening with low-dose CT in 12 months. 2. No emphysematous changes are present. All CT scans at this facility are performed using low dose modulation techniques as appropriate to perform exam including the following: automated exposure control; use of iterative reconstruction technique; adjustment of the mA and/or kV according to patient size (this includes techniques or standardized protocols for targeted exams where dose is matched to indication/reason for exam). Reviewed, dictated and finalized at location S. D CARE ASSOCIATE IMPRESSION: 1. Lung-RADS category 1: No nodules or definitely benign nodules. Recommendations: 1 or 2: Annual screening with low-dose CT in 12 months. 2. No emphysematous changes are present. All CT scans at this facility are performed using low dose modulation techniqu es as appropriate to perform exam including the following: automated exposure c ontrol; use of iterative reconstruction technique; adjustment of the mA and/or kV according to patient size (this includes techniques or standardized protocol s for targeted exams where dose is matched to indication/reason for exam).
--- NOTE | ~2025-03-11 | XR_ITS ---
EXAMINATION: XR finger 1st LT min 2V, 03/11/2025 14:35 [employer]ING [employer] HISTORY: M79.646 - Pain in 1st digit, injury 2 weeks ago COMPARISON: No comparisons available. Findings: No acute fracture or malalignment. No significant degenerative changes. Soft tissues unremarkable. Impression: No acute fracture or malalignment. Reviewed, dictated and finalized at location P. NG BOARD ASSEMBLER Impression: No acute fracture or malalignment.
--- OUTSIDE RECORDS SUMMARY | 2025-03-11 15:13 | XMS_ITS | Encounter Summary ---
Author Organization [facility] Address [address] [facility] [address] [place] [address] Care Team Providers Care Layer Out Plate Glass Name Role Phone Ezequiel Cr MD Primary Care Provider + [phone] Robert Agrawal MD Primary Care Provider [phone] Ezequiel Cr MD Primary Care Provider + [phone] Destinee De La Cruz MEDICINE AND HEALTH SERVICE MANAGER Primary Care Provider [phone] Destinee De La Cruz MEDICINE AND HEALTH SERVICE MANAGER Primary Care Provider [phone] Ezequiel Cr MD Primary Care Provider + [phone] Destinee De La Cruz MEDICINE AND HEALTH SERVICE MANAGER Primary Care Provider [phone] Robert Agrawal MD Primary Care Provider [phone] Unknown, Notinfile Primary Care Provider Unavail able Robert Agrawal MD Primary Care Provider Robert Agrawal MD Unavailable [phone] Unknown, Notinfile Unavailable Unavailable Ayanna Gipson RN Unavailable Unavailable Mikey Carlton MD Unavailable Yvan Morales MD Unavailable [phone] Berny Wilder MD Unavailable Gen Moreno MEDICINE AND HEALTH SERVICE MANAGER Unavailable [phone] Carol WELLER MD, Carlos M. Unavailable [phone] Jenn Soliz MD Unavailable [phone] Dorinda David LPN Unavailable Unavailchino PerryeyPraveen MA Unavailable Unavailable Miscellaneous, Not In File Primary Care Provider Unavailable Epifanio Quezada MD Primary Care Provider [phone] Miscellaneous, Not In File Primary Care Provider Unavailable Unknown, Notinfile Primary Care Provider Unavail able No, Physician Primary Care Provider Ames Cheri E. Unavailable Unavailable Epifanio Quezada MD Primary Care Provider [phone] Robert Agrawal MD Primary Care Provider [phone] Parveen Garcia MD Primary Care Provider [phone] Carito ChinW Unavailable [phone] Parveen Garcia MD Primary Care Provider [phone] Parveen Garcia MD Primary Care Provider [phone] Robert Agrawal MD Primary Care Provider [phone] Jose Roberto Uribe MD Primary Care Provider [phone] Parveen Garcia MD Primary Care Provider [phone] Jose Roberto Uribe MD Primary Care Provider [phone] Encounter Details Date Type Department Care Team (Late st Contact Info) Description 05/11/2016 Orders Only [facility] Bet[facility] MD [address] [place] [address] Social History Tobacco Use Types Packs/Day Years Used Date Smoking Tobacco: Every Day Comments:Smoking History Pac ks/day: 1 Packs Alcohol Use Standard Drinks/Week Comments Yes 0 (1 standard drink = 0.6 oz pur e alcohol) Comments Unknown Sex and Gender Information Value Date Recorded Sex Assigned at Not on file Legal Sex Female 1:01 AM RETURNED CASE INSPECTOR Gender Identity Not on file Sexual Orientation Not on file documented as of this encounter Plan of Treatment Not on file documented as of this encounter Procedures Procedure Name Priority Date/Time Associated Diagnosis Comments CARDIOLOGY REPORT 05/11/2016 documented in this encounter Results * CARDIOLOGY REPORT (05/11/2016) Anatomical Region Laterality Modality Other Narrative 05/11/2016 Ordered by an unspecified provider. us Historical Provider [facility] Final Result documented in this encounter Visit Diagnoses Not on filedocumented in this encounter Additional Health Concerns Infection Onset Date Last Indicated Resolved Time COVID: Suspected 12/11/2020 12/11/2020 12/11/2020 10:31 AM CDT COVID: Suspected 12/14/2020 12/14/2020 12/14/2020 10:51 AM CDT COVID: Suspected 04/25/2021 04/25/2021 04/26/2021 4:42 PM RETURNED CASE INSPECTOR COVID: Suspected 01/16/2022 01/16/2022 01/16/2022 11:17 PM CDT COVID: Suspected 02/28/2025 02/28/2025 02/28/2025 1:55 PM RETURNED CASE INSPECTOR documented as of this encounter Care Teams Layer Out Plate Glass Relationship Specialty Start Date End Date Ezequiel Cr MD [address] [facility] [address] [place] [address] PCP - General 05/07/16 06/21/16 Robert Agrawal MD [address] [facility] [address] [place] [address] PCP - General 06/22/16 07/13/16 Ezequiel Cr MD [address] [facility] [address] [place] [address] PCP - General 07/14/16 07/15/16 Destinee De La Cruz NP [address] [facility] [address] [place] [address] PCP - General 07/16/16 07/17/16 Destinee De La Cruz, MEDICINE AND HEALTH SERVICE MANAGER [address] [facility] [address] [place] [address] PCP - General 07/18/16 07/18/16 Ezequiel Cr MD [address] [facility] [address] [place] [address] PCP - General 07/19/16 07/30/16 Destinee De La Cruz, REMY [address] [facility] [address] [place] [address] PCP - General 07/31/16 03/04/17 Robert Agrawal MD [address] [facility] [address] [place] [address] PCP - General 03/05/17 09/03/18 Unknown, Notinfile PCP - General 09/04/18 12/03/18 Robert Agrawal MD [address] [facility] [address] [place] [address] PCP - General 12/04/18 01/08/19 Miscellaneous, Not In File PCP - General 01/09/19 01/29/19 Epifanio Quezada MD PCP - General Family Medicine 01/30/19 03/19/19 Miscellaneous, Not In File PCP - General 03/20/19 06/11/19 Unknown, Notinfile PCP - General 06/12/19 10/27/19 No, Physician PCP - General 10/28/19 08/18/20 Epifanio Quezada MD PCP - General Family Medicine 08/19/20 09/13/20 Robert Agrawal MD [address] [place] [address] [address] [place] [address] PCP - General 12/14/20 01/23/21 Parveen Garcia MD [address] [place] [address] PCP - General Family Medicine 01/24/21 04/25/21 Parveen Garcia MD [address] [place] [address] PCP - General Family Medicine 09/14/20 12/13/20 Parveen Garcia MD [address] [place] [address] PCP - General Family Medicine 04/26/21 04/26/21 Robert Agrawal MD [address] [place] [address] [address] [place] [address] PCP - General 04/27/21 04/27/21 Jose Roberto Uribe MD [address] [place] [address] [place] [address] PCP - General Family Practice 01/17/22 01/22/22 Parveen Garcia MD [address] [place] [address] PCP - General Family Medicine 01/23/22 02/27/22 Jose Roberto Uribe MD [address] [place] [address] [address] [place] [address] PCP - General Family Practice 02/28/22 Robert Agrawal MD [address] [place] [address] [address] [place] [address] 09/04/18 11/06/18 Unknown, Notinfile 12/04/18 Ayanna Gipson, RN Registered Nurse 06/10/17 01/29/19 Mikey Carlton MD Consulting Physician Pain Management 07/18/17 [place] [address] [facility] [address] [place], [place] [address] Consulting Physician Psychiatry 07/18/17 Berny Wilder MD [address] [place] [address] Consulting Physician Neurology 07/18/17 05/21/18 Gen Moreno NP [address] [place] [address] Nurse Practitioner Pain Management 05/22/18 [place] [address] [facility] [address] [place] [address] Consulting Physician Neurology 05/22/18 [place] [address] [facility] [address] [place] [address] Consulting Physician Gastroenterology 05/22/18 Dorinda David LPN [address] [address] [place] [address] Skiver Box Toe 07/15/18 07/16/18 Praveen Shrestha MA ACO Care Design Teacher 12/08/18 12/08/18 Cheri Ames Websphere Message Broker Developer Addiction Medicine 06/16/20 Carito Chin, [facility] [address] [place] [address] Educational Paraprofessional 02/15/21 03/19/21 documented as of this encounter
--- OUTSIDE RECORDS SUMMARY | 2025-03-11 15:13 | XMS_ITS | Patient Health Record ---
Author Organization [facility] Address [address] [place] [address] Phone [phone] Care Team Providers Care Bill Of Lading Clerk Name Role Phone Ramon Alcantara Primary Care Provider [phone] Reason For Referral No Information Social History Sex Observation Social History Observation Description Sex Observation Female SDOH Assessments Date Tool Assessment Assessment LOINC Value Assessment Notes Goals Interventions 01/22/20 PRAPARE (LOINC: 65292-0) Total Score: 8 Date Completed/Upda jeff: 01/22/20 What is your current housing situation? 55600-4 I have housing (FV88760-1) Are you worried about losing your housing? 57434-0 No (LA32-8) What is the highest level of school that you have finished? 31984-1 More than high school (KI50031-2) What is your current work situation? 33615-7 Otherwise unemployed but not seeking work (ex. student, retired, disabled, unpaid primary health care facility administrator) (UO10960-3) In the past year, have you o r any family members you live with been unable to get any of the following when it was really needed? Check all that apply 39413-5 Food (EO25639-4) Has lack of transportation k ept you from medical appointments, meetings, work or from getting things needed for daily living? 55230-0 Yes, it has kept me from non-medical meetings, appointments, work, or getting things needed for daily living (BG39941-5) Yes, it has kept me from medical appointments or from getting my medications (BT19240-1) How often do you see or talk to people that you care about and feel close to? (For example: talking to friends on the phone, visiting friends or family, going to muslim or club meetings) 27732-0 More than 5 times a week (JK12632-9) How stressed are you? Stress is when someone feels tense, nervous, anxious, or can\t sleep at night because their mind is troubled 36701-7 Very much (RK40935-7) In the past year have you sp ent more than 2 nights in a row in a intermediate, fpc, prison center, or juvenile correctional facility? [address]-7 No (LA32-8) Do you feel physically and emotionally safe where you currently live? [address]-9 Yes (LA33-6) In the past year, have you b een afraid of your partner or ex-partner? [address]-2 No (LA32-8) Are you a refugee? No What country are you from? [facility] PRAPARE Score: 8 Social History Social Determinants Social Info Question Answer Notes PRAPARE Date Completed/Updated: 01/21/2019 What is your current housing situation? I have h ousing Are you worried about losing your housing? No What is the highest level of school that you have finished? More than high school What is your current work situation? Oth erwise unemployed but not seeking work (ex. student, retired, disabled, unpaid primary health care facility administrator) In the past year, have you o [...] phone, visiting friends or family, going to muslim or club meetings) More than 5 times a week How stressed are you? Stress is when someone feels tense, nervous, anxious, or can\t sleep at night because their mind is troubled Very much In the past year have you sp ent more than 2 nights in a row in a intermediate, fpc, prison center, or juvenile correctional facility? No Are you a refugee? No What country are you from? [place] Do you feel physically and e motionally safe where you currently live? Yes In the past year, have you b een afraid of your partner or ex-partner? No PRAPARE Score: 8 Drugs/Alcohol: Social Info Question Answer Notes Alcohol Screen (Audit-C) Did you have a drink containing alcohol in the past year? Yes How often did you have a drink containing alcohol in the past year? 4 [...] daily (4 points) Points 12 Interpretation Positive Problems Problem Type SNOMED Code ICD Code Dates Problem Status W/U Status Risk Notes Problem Alcohol use disorder (6345667103) Alcohol use disorder (F10.99) Added On: 019 Active confirmed Problem Opioid use disorder (7201481567) Opioid use disorder (F11.99) Added On: 019 Active confirmed Plan Of Treatment No Information Insurance Providers Payer Name Payer Address Payer Phone Subscriber Number Group Number Insured Name Patient Relationship to Insured Coverage Start Date Coverage End Date [facility] [address] [address] [place] [address] [id number] Divine Sosa Self - patient is the insured 9 MEDICAID [address] [place] [address] [id number] Divine Sosa Self - patient is the insured 9
--- OUTSIDE RECORDS SUMMARY | 2025-03-11 15:14 | XMS_ITS | Encounter Summary ---
Author Organization [facility] Healthcare Address [address] [place] [address] Care Team Providers Care Cut Out Press Operator Name Role Phone Unknown, Notinfile Unavailable Unavailable Mikey Carlton MD Unavailable Yvan Morales MD Unavailable [phone] Gen Moreno NP Unavailable [phone] Carol WELLER MD, Carlos M. Unavailable Jenn Soliz MD Unavailable [phone] No, Physician Primary Care Provider [phone] Cheri Ames Unavailable Unavailable Epifanio Quezada MD Primary Care Provider [phone] Robert Agrawal MD Primary Care Provider [phone] Parveen Garcia MD Primary Care Provider [phone] Carito Chin LCSW Unavailable [phone] Parveen Garcia MD Primary Care Provider [phone] Parveen Garcia MD Primary Care Provider [phone] Robert Agrawal MD Primary Care Provider [phone] Jose Roberto Uribe MD Primary Care Provider [phone] Parveen Garcia MD Primary Care Provider [phone] Jose Roberto Uribe MD Primary Care Provider [phone] Encounter Details Date Type Department Care Team (Late st Contact Info) Description 05/09/2020 Patient Outreach [facility] Warm Hand Off Program [address] [place] [address] Adilia Lora Social History Tobacco Use Types Packs/Day Years Used Date Smoking Tobacco: Every Day Cigarettes 2 30 Smokeless Tobacco: Never Comments:Smoking History Pac ks/day: 1 Packs Alcohol Use Standard Drinks/Week Comments Not Currently 0 (1 standard drink = 0.6 oz pur e alcohol) occasionally PHQ-2 Answer Date Recorded PHQ-2 Score 0 11/14/2018 Comments No Sex and Gender Information Value Date Recorded Sex Assigned at Not on file Legal Sex Female 1:01 AM MAIL TECHNICIAN Gender Identity Not on file Sexual Orientation Not on file documented as of this encounter Plan of Treatment Not on file documented as of this encounter Goals Goal Patient Goal Type Associated Problems Recent Progress Patient-Stated? Author Increase physical activity Exercise No Ayanna Gipson, NILE Note: She was having in home Wellness program physical therapy. documented as of this encounter Visit Diagnoses Not on filedocumented in this encounter Additional Health Concerns Infection Onset Date Last Indicated Resolved Time COVID: Suspected 12/11/2020 12/11/2020 12/11/2020 10:31 AM CDT COVID: Suspected 12/14/2020 12/14/2020 12/14/2020 10:51 AM CDT COVID: Suspected 04/25/2021 04/25/2021 04/26/2021 4:42 PM MAIL TECHNICIAN COVID: Suspected 01/16/2022 01/16/2022 01/16/2022 11:17 PM CDT COVID: Suspected 02/28/2025 02/28/2025 02/28/2025 1:55 PM MAIL TECHNICIAN documented as of this encounter Care Teams Cut Out Press Operator Relationship Specialty Start Date End Date No, Physician PCP - General 10/28/19 08/18/20 Epifanio Quezada MD PCP - General Family Medicine 08/19/20 09/13/20 Robert Agrawal MD PCP - General 12/14/20 01/23/21 Parveen Garcia MD [address] [place] [address] PCP - General Family Medicine 01/24/21 04/25/21 Parveen Garcia MD [address] [place] [address] PCP - General Family Medicine 09/14/20 12/13/20 Parveen Garcia MD [address] [place] [address] PCP - General Family Medicine 04/26/21 04/26/21 Robert Agrawal MD PCP - General 04/27/21 04/27/21 Jose Roberto Uribe MD [address] [place] [address] [address] [place] [address] PCP - General Family Practice 01/17/22 01/22/22 Parveen Garcia MD [address] [place] [address] PCP - General Family Medicine 01/23/22 02/27/22 Jose Roberto Uribe MD [address] [place] [address] [address] [place] [address] PCP - General Family Practice 02/28/22 Unknown, Notinfile 12/04/18 Mikey Carlton MD Consulting Physician Pain Management 07/18/17 [place] [address] [facility] [address] [place], [place] [id number] Consulting Physician Psychiatry 07/18/17 Gen Moreno, REMY [address] [facility] [address] [place] [address] Nurse Practitioner Pain Management 05/22/18 [place] [address] [facility] [address] [place] [address] Consulting Physician Neurology 05/22/18 [place] [address] [facility] [address] [place] [address] Consulting Physician Gastroenterology 05/22/18 Cheri Ames Compensation And Hris Analyst Addiction Medicine 06/16/20 Carito Chin, [address] [facility] [address] [place] [address] Line Out Man 02/15/21 03/19/21 documented as of this encounter
--- OUTSIDE RECORDS SUMMARY | 2025-03-11 15:14 | XMS_ITS | Clinical Summary ---
Author Organization [facility] Address [address] [facility] [place] [address] Care Team Providers Care Stripping Machine Operator Name Role Phone Jose Roberto Uribe MD Primary Care Provider [phone] Allergies Active Allergy Reactions Criticality Noted Date Comments Carbamazepine Fever,Hives,Itching, Other (See Comments) High 10/26/2013 Reaction: Reaction: itch, , , Reaction: Fever, , Codeine Nausea and Vomiting Low 01/30/2019 Naproxen Itching,Other (See Comments) Low 10/26/2013 Reaction: Reaction: itch, , , Nsaids (Non-Steroidal Anti-Inflammatory Drug) Unknown 12/04/2018 Penicillins Other (See Comments),Hives,Itch ing,Swelling,Unknown High 10/26/2013 Reaction: Hives, , , Phenytoin Fever,Hives,Other (See Comments),Unknown High 10/26/2013 Reaction: fever, , Reaction: fever, , , Reaction: Medications diltiaZEM (DILT-XR) 120 mg Extended Release capsule Take 1 Capsule by mouth daily. 04/26/2021 Active DULoxetine (CYMBALTA) 30 mg Capsule, Delayed Release(E.C.) Take 15 mg by mouth daily. 02/21/2021 Active levothyroxine 112 mcg tablet Take 112 mcg by mouth daily in the morning. Active gabapentin (NEURONTIN) 300 mg capsule Take 300 mg by mouth 3 times daily. Active Active Problems No known active problems Encounters Date Type Department Care Team Description 03/02/2025 External Device Data [facility] Provider, Abstract 02/09/2025 External Device Data [facility] Provider, Abstract 01/20/2025 External Device Data [facility] Provider, Abstract from Last 3 Months Family History Medical History Relation Name Comments No Known Problems Brother Addiction problem Child 1 Addiction problem Child 2 Liver Disease Child 2 No Known Problems Child 3 Heart Disease Father Prostate Cancer Father No Known Problems Mother Skin Cancer Sister 1 No Known Problems Sister 2 Relation Name Status Comments Brother Alive Child 1 Child 2 Alive Child 3 Alive Father Alive Mother Sister 1 Alive Sister 2 Alive Social History Tobacco Use Types Packs/Day Years Used Date Smoking Tobacco: Every Day Cigarettes 2 53.3 Started: 11/13/1971 Smokeless Tobacco: Never Tobacco Cessation:Ready to Q uit: Not Asked; Counseling Given: Not Answered Alcohol Use Standard Drinks/Week Comments Not Currently 0 (1 standard drink = 0.6 oz pur e alcohol) Comments Unknown Sex and Gender Information Value Date Recorded Sex Assigned at Not on file Legal Sex Female 9:39 AM CDT Gender Identity Not on file Sexual Orientation Not on file Last Filed Vital Signs Vital Sign Reading Time Taken Comments Blood Pressure 122/73 08/31/2024 10:24 AM CDT Pulse 77 08/31/2024 10:24 AM CDT Temperature 36.4 C (97.6 F) 08/31/2024 10:24 AM CDT Respiratory Rate 16 08/31/2024 10:24 AM CDT Oxygen Saturation 96% 08/31/2024 10:24 AM CDT Inhaled Oxygen Concentration - - Weight 68.5 kg (151 lb) 08/31/2024 10:24 AM CDT Height 160 cm (5' 3) 11/13/2023 2:35 PM CDT Body Mass Index 26.75 11/13/2023 2:35 PM CDT Plan of Treatment Upcoming Encounters Date Type Department Care Team (Late st Contact Info) Description 03/30/2025 4:30 PM BOW MACHINE OPERATOR Telephone Check Up [facility] Oncology and Hematology - [address] [facility] [address] [place] [address] Berny Brower MD [address] [facility] [address] [place] [address] Health Maintenance Due Date Last Done Comments Pre-Diabetes and Diabetes Screening 1961 DTAP/TDAP/TD VACCINES (1 - Tdap) 1980 HPV/Cotest (21-29) 1982 CERVICAL CANCER SCREENING 06/14/1991 HPV/Cotest (30-65) 06/14/1991 PAP SMEAR 06/14/1991 FIT-DNA Q 3 years 2006 FIT/FOBT Q 1 year 2006 Flex Sig/CT Colonography Q 5 years 2006 RSV VACCINE (60+ or ) (1 - Risk 50-74 years 1-dose series) 06/14/2011 ZOSTER VACCINE (1 of 2) 06/14/2011 BREAST CANCER SCREENING 06/06/2019 06/06/19 19, 06/05/2018, 06/10/2015 INFLUENZA VACCINE (#1) 2024 8, 12/12/2016, 04/13/2016, Additional history exists Lung Cancer Screening 03/09/2025 03/09/2024 COLORECTAL SCREENING 01/01/2026 01/02/2016, 01/02/2016, 02/08/2015, Additional history exists Colorectal Cancer Screening 01/01/2026 Procedures Procedure Name Priority Date/Time Associated Diagnosis Comments CT LUNG SCREENING (FOLLOW UP LOW DOSE) Routine 03/09/2024 11:23 AM BOW MACHINE OPERATOR from Last 3 Months or Most Recently Relevant to Health Maintenance Results * CT LUNG SCREENING (FOLLOW UP LOW DOSE) (03/09/2024 11:23 AM BOW MACHINE OPERATOR) Anatomical Region Laterality Modality Chest Computed Tomogra phy Berny Brower MD CT ORDERABLES Final Result from Last 3 Months or Most Recently Relevant to Health Maintenance Insurance [place]ICAID [place] [facility] DUAL COMPLETE PPO DSNP [facility] [id number] Care Teams Stripping Machine Operator Relationship Specialty Start Date End Date Jose Roberto Uribe MD [address] [place] [id number] PCP - General Family Practice 04/03/24
--- OUTSIDE RECORDS SUMMARY | 2025-03-11 15:14 | XMS_ITS | Clinical Summary ---
Author Organization [facility] Address [address] [facility], [address] [address] Phone Care Team Providers Care Photogrammetric Stereo Compiler Name Role Phone Kieran Greene DO Unavailable Parveen Garcia MD Primary Care Provider [phone] Allergies Active Allergy Reactions Criticality Noted Date Comments Codeine Vomiting 01/30/2019 Divalproex Sodium Er Hives 01/09/2016 Phenytoin Hives 01/09/2016 Nsaids Hives 01/09/2016 Penicillins Unknown 01/09/2016 Carbamazepine Hives 01/09/2016 Medications dilTIAZem (CARDIZEM CD) 120 MG CAPSULE SR 24 HR Take 120 mg by mouth daily. Active Travoprost, KEM Free, (TRAVATAN Z) 0.004 % Solution Place 2 Drops in affected eye(s) nightly. Active pregabalin (LYRICA) 150 MG Capsule Take 150 mg by mouth 2 times daily. Active lamoTRIgine (LAMICTAL) 100 MG Tablet Take 100 mg by mouth daily. Active BusPIRone HCl (BUSPAR PO) Take by mouth 3 times daily. Active cyclobenzaprine (FLEXERIL) 10 MG Tablet Take 1 Tab by mouth nightly as needed for Muscle spasms for up to 10 doses. 10 Tab 9 Active Additional Information Patient not taking.Reported on 06/22/2019 Erenumab-aooe (AIMOVIG, 140 MG DOSE,) 70 MG/ML Solution Auto-injector by Subcutaneous route. Active Fremanezumab-vf rm (AJOVY) 225 MG/1.5ML Solution Prefilled Syringe by Subcutaneous route. Active ALBUTEROL SULFATE IN take by inhalation. Active umeclidinium-vi lanterol (ANORO ELLIPTA) 62.5-25 MCG/INH AEROSOL POWDER, BREATH ACTIVATED take 1 Puff by inhalation daily. Active Mesalamine (APRISO) 0.375 GM CAPSULE SR 24 HR Take by mouth. Activ e DULoxetine (CYMBALTA) [address] Particles Take 30 mg by mouth daily. Active HYDROcodone-jeannine taminophen (NORCO) 5-325 MG Tablet Take 1 Tab by mouth every 8 hours as needed for Moderate or more severe pain. 12 Tab 0 Active ondansetron (ZOFRAN) 4 MG Tablet Take 1 Tab by mouth every 8 hours as needed for Nausea - 1st line. 10 Tab 0 Active celecoxib (CeleBREX) 200 MG Capsule Take 1 Capsule by mouth 2 times daily. 60 Capsule 1 Active traMADol (ULTRAM) 50 MG Tablet Take 1 Tablet by mouth every 8 hours as needed for Mild or more severe pain. 20 Tablet 1 Active clotrimazole-be tamethasone (Lotrisone) 1-0.05 % Cream Application Site: Affected area on the left side of chest 3 times a day 45 g 1 Active Active Problems Problem Noted Date Diagnosed Date Atypical angina 11/22/2017 Hypokalemia 11/22/2017 UTI (urinary tract infection) 11/22/2017 Elevated d-dimer 11/22/2017 COPD exacerbation 11/22/2017 Seizure disorder 11/22/2017 Tobacco dependence syndrome 11/22/2017 Family History Medical History Relation Name Comments Heart Disease Father Cancer Paternal Grandmother Relation Name Status Comments Father Alive Mother Paternal Grandmother Social History Tobacco Use Types Packs/Day Years Used Date Smoking Tobacco: Every Day Cigarettes 1.5 30 Smokeless Tobacco: Never Tobacco Cessation:Ready to Q uit: Yes; Counseling Given: Yes Alcohol Use Standard Drinks/Week Comments Not Currently 0 (1 standard drink = 0.6 oz pur e alcohol) couple times per week Comments No Sex and Gender Information Value Date Recorded Sex Assigned at Not on file Legal Sex Female 12:16 AM CDT Gender Identity Not on file Sexual Orientation Not on file Last Filed Vital Signs Vital Sign Reading Time Taken Comments Blood Pressure 128/62 10/04/2020 4:42 PM CDT Pulse 63 10/04/2020 4:42 PM CDT Temperature 36.7 C (98 F) 10/04/2020 2:24 PM CDT Respiratory Rate 18 10/04/2020 2:24 PM CDT Oxygen Saturation 98% 10/04/2020 4:15 PM CDT Inhaled Oxygen Concentration - - Weight 78.9 kg (174 lb) 10/04/2020 2:24 PM CDT Height 162.6 cm (5' 4) 10/04/2020 2:24 PM CDT Body Mass Index 29.87 10/04/2020 2:24 PM CDT Plan of Treatment Health Maintenance Due Date Last Done Comments Hepatitis C Virus (HCV) Screening 1960 TdaP Immunization 1961 Pap Smear 1982 Cervical Cancer Screening (CCS) 06/14/1991 HPV/Cotest 06/14/1991 Medicare Initial AWV [id number] 10/23/2001 Cologuard 2006 Colonoscopy 2006 Colorectal Cancer Screening 2006 Immunochemical Fecal Occult Blood 2006 Respiratory Syncytial Virus (RSV) Immunization (Adult) (1 - Risk 50-74 years 1-dose series) 06/14/2011 Zoster Immunization (1 of 2) 06/14/2011 Pneumococcal Immunization (5 0+ years) (2 of 2 - PCV) 08/28/2016 08/29/2015 Influenza Immunization (#1) 11/23/202403/26, 06/22/2015 SARS-COV-2 Immunization (3 - season) 2024 07/20/2020, 06/20/2020 Pneumococcal Immunization Combined Discontinued 08/29/2015 Lung Cancer Screening Discontinued 11/22/2017 Hepatitis B Immunization Aged Out No longer eligible based on patient's age to complete this topic Human Papillomavirus (HPV) Immunization (No Doses Required) Completed Meningococcal Immunization (ACWY) Aged Out No longer eligible based on patient's age to complete this topic Rotavirus Immunization Aged Out No lo nger eligible based on patient's age to complete this topic Medical Devices Implanted Type Area [place] Device Identifier Shelf Expiration Date Model / Serial / Lot Angioseal Vip 6fr - [id number] Implanted:Qty : 1 on 05/11/2016 by Ericka Patel MD at [facility] IMPLANT Right: Groin ST MAKAYLA / ATRIAL FIB 10/22/2016 [id number] / [id number] / [id number] Device Clsr 5fr Mynxgrip Treasury Manager Vasc Bln Cath Lock Syr Integrate Sealant 10ml Lf Disp - [id number] Implanted:Qty : 1 on 12/20/2017 by Ericka Patel MD at [facility] IMPLANT Right: Groin [employer] 06/23/2019 [id number] / / [id number] Procedures Procedure Name Priority Date/Time Associated Diagnosis Comments CT CHEST W CONTRAST STAT 11/22/2017 1 2:34 AM CDT from Last 3 Months or Most Recently Relevant to Health Maintenance Results * CT CHEST W CONTRAST (11/22/2017 12:34 AM CDT) Anatomical Region Laterality Modality Chest N/A Computed Tomogra phy 11/22/2017 1:35 AM CDT Impressions 11/22/2017 1:38 AM CDT IMPRESSION: 1. No pulmonary embolism or aortic dissection. 2. No pulmonary infiltrates or pleural effusions. Narrative 11/22/2017 1:38 AM CDT EXAM DESCRIPTION: CT CHEST W CONTRAST REASON FOR STUDY: Right-sided chest pain increases with coughing and radiates to the back and axilla. The pain started yesterday. Patient has a productive cough. Smoking history. COPD. D-dimer 0.56. TECHNIQUE: CT scan of the chest performed with intravenous contrast using helical scanning technique with dynamic intravenous contrast injection. Reconstructed coronal and sagittal MPR images reviewed. All images stored on PACS. Automated exposure control was used as a dose optimization technique for this examination. CONTRAST TYPE/DOSE: 100 mL of Isovue 370 contrast were intravenously injected at the left antecubital IV. COMPARISON: Chest x-ray August 12, 2014 FINDINGS: LUNGS: No nodules or masses. No pneumonia. PLEURA: No effusion. No pneumothorax. MEDIASTINUM/MARGARITA: No identified masses or abnormal nodes. HEART: Heart size is normal with no pericardial effusion. VASCULATURE: No thoracic aortic aneurysm or dissection. No pulmonary embolism. AXILLA: No adenopathy. CHEST WALL: No masses. No subcutaneous air. HARDWARE/LINES/TUBES: None. UPPER ABDOMEN: No significant abnormality. MUSCULOSKELETAL: No significant abnormality. OTHER: No other significant abnormality. THIS IS AN ELECTRONICALLY VERIFIED FINAL REPORT 11/22/2017 1:35 AM - Electronically signed by Levar Bah M.D. MA: NIKITA Report ID: [id number] Reading Location: [place] [address] Procedure Note Levar Bah MD - 11/22/2017 EXAM DESCRIPTION: CT CHEST W CONTRAST REASON FOR STUDY: Right-sided chest pain increases with coughing and radiates to the back and axilla. The pain started yesterday. Patient has a productive cough. Smoking history. COPD. D-dimer 0.56. TECHNIQUE: CT scan of the chest performed with intravenous contrast using helical scanning technique with dynamic intravenous contrast injection. Reconstructed coronal and sagittal MPR images reviewed. All images stored on PACS. Automated exposure control was used as a dose optimization technique for this examination. CONTRAST TYPE/DOSE: 100 mL of Isovue 370 contrast were intravenously injected at the left antecubital IV. COMPARISON: Chest x-ray August 12, 2014 FINDINGS: LUNGS: No nodules or masses. No pneumonia. PLEURA: No effusion. No pneumothorax. MEDIASTINUM/MARGARITA: No identified masses or abnormal nodes. HEART: Heart size is normal with no pericardial effusion. VASCULATURE: No thoracic aortic aneurysm or dissection. No pulmonary embolism. AXILLA: No adenopathy. CHEST WALL: No masses. No subcutaneous air. HARDWARE/LINES/TUBES: None. UPPER ABDOMEN: No significant abnormality. MUSCULOSKELETAL: No significant abnormality. OTHER: No other significant abnormality. THIS IS AN ELECTRONICALLY VERIFIED FINAL REPORT 11/22/2017 1:35 AM - Electronically signed by Levar Bah M.D. MA: NIKITA Report ID: [id number] Reading Location: [id number] IMPRESSION: 1. No pulmonary embolism or aortic dissection. 2. No pulmonary infiltrates or pleural effusions. Pattie Barajas MD IM CT ORDERABLES Final Result from Last 3 Months or Most Recently Relevant to Health Maintenance Insurance MEDICARE C [employer] MEDIC[facility] Advance Directives * Full Code (Latest Code Status on File) Date Activated Date Inactivated Comments 11/22/2017 1:45 AM 11/22/2017 7:55 PM CPR-Full Chevy atment: FULL ARREST: Attempt Resuscitation/CPR wit intubation and mechanical ventilation. PRE-ARREST: Use entire range of life support measures to stabilize the patient. Care Teams Photogrammetric Stereo Compiler Relationship Specialty Start Date End Date Parveen Garcia MD [address] [place] [address] PCP - General Family Medicine 10/04/20 Kieran Greene DO Consulting Physician Gastroenterology 02/05/15
--- OUTSIDE RECORDS SUMMARY | 2025-03-11 15:14 | XMS_ITS | Clinical Summary ---
Author Organization [facility] [address] Address [address] [place] [address] Care Team Providers Care Early Childhood Coordinator Name Role Phone Unknown, Notinfile Unavailable Unavailable Mikey Carlton MD Unavailable OnYvan kiser MD Unavailable Gen Moreno NP Unavailable [phone] Carol WELLER MD, Andrea Garcia Unavailable [phone] Jenn Soliz MD Unavailable [phone] Cheri Ames Unavailable Unavailable Jose Roberto Uribe MD Primary Care Provider [phone] Allergies Active Allergy Reactions Criticality Noted Date Comments Carbamazepine Itching,Fever,Other (See comments) Medium Reaction: Reaction: itch, , , Reaction: Fever, , Codeine Vomiting Low 01/30/2019 Phenytoin Sodium Extended Unknown,Other (See comments) Low 02/22/2017 Reaction: Divalproex Hives Medium Reaction: hives, Ibuprofen Itching Reaction: itch, , Reaction: itch, , , , Reaction: Itching, , , Naproxen Itching,Other (See comments) Low Reaction: Reaction: itch, , , Nsaids (Non-Steroidal Anti-Inflammatory Drug) Nsaids (Non-Steroidal Anti-Inflammatory Drug) Unknown 12/04/2018 Penicillins Hives,Edema,Stomach upset,Itching Medium Reaction: Hives, , , Phenytoin Fever Reaction: fever, , Reaction: fever, , , Valproic Acid Valproic Acid Analogues Medications APRISO 0.375 gram 24 hr capsuleIndication s:Ulcerative Colitis,4 tablets daily Take 375 mg by mouth daily. 017 Active nitroglycerin (NITROSTAT) 0.[address] 1 tablet (0.4 mg total) under the tongue every 5 (five) minutes as needed for chest pain. May repeat q 5 min for up to 3 doses. 100 tablet 11 018 Active levothyroxine (SYNTHROID, LEVOTHROID) 112 mcg tabletIndications :Acquired hypothyroidism Take 1 tablet (112 mcg total) by mouth daily. 90 tablet 3 Active ANORO ELLIPTA 62.5-25 mcg/actuation blister with deviceIndications :Chronic obstructive pulmonary disease, unspecified COPD type (HCC) INHALE 1 PUFF DAILY. 1 each 3 Active PROAIR HFA 90 mcg/actuation inhalerIndication s:Chronic obstructive pulmonary disease, unspecified COPD type (HCC) INHALE 2 PUFFS INTO LUNGS EVERY 6 (SIX) HOURS NEEDED FOR WHEEZING OR SHORTNESS OF BREATH. 1 Inhaler 3 Active Additional Information Patient not taking.Reported on 01/27/2025 lamoTRIgine (LaMICtal) 100 mg tabletIndications :Bipolar and related disorder (HCC) TAKE 1 TABLET (100 MG TOTAL) BY MOUTH DAILY. 30 tablet 11 Active Additional Information Patient not taking.Reported on 01/27/2025 busPIRone (BUSPAR) 15 mg tabletIndications :Generalized Anxiety Disorder Take 15 mg by mouth 2 (two) times a day Active HYDROcodone-aceta minophen (NORCO) 5-325 mg per tabletIndications :Pain Take 1 tablet by mouth every 6 (six) hours as needed for pain 8 tablet Active Additional Information Patient not taking.Reported on 01/27/[address] (CYMBALTA) 30 mg capsuleIndication s:major depressive disorder TAKE 1 CAPSULE (30 MG TOTAL) BY MOUTH 2 (TWO) TIMES A DAY 60 capsule 14 Active amitriptyline (ELAVIL) 25 mg tabletIndications :depression,Fibro myalgia Take 2 tablets (50 mg total) by mouth nightly 180 tablet 3 Active ergocalciferol (VITAMIN D) 50,000 unit capsule TAKE 1 CAPSULE BY MOUTH ONCE A WEEK 12 capsule 14 Active Additional Information Patient not taking.Reported on 01/27/2025 gabapentin (NEURONTIN) 300 mg capsule Active UNABLE TO FINDIndications:P atient states she smokes and has edibles Medical marijuana Active ketorolac (TORADOL) 10 mg tablet Take 1 tablet (10 mg total) by mouth every 6 (six) hours as needed for pain 20 tablet Active Additional Information Patient not taking.Reported on 01/27/2025 omeprazole (PriLOSEC) 20 mg capsule TAKE 1 CAPSULE BY MOUTH EVERY DAY 90 capsule 14 Active DILT-XR 120 mg 24 hr capsule TAKE 1 CAPSULE BY MOUTH EVERY DAY 90 capsule 14 Active pravastatin (PRAVACHOL) 20 mg tablet TAKE 1 TABLET (20 MG TOTAL) BY MOUTH DAILY 90 tablet 3 Active Additional Information Patient not taking.Reported on 01/27/2025 lidocaine (LIDODERM) 5 % Place 1 patch on the skin daily for 30 doses Remove & discard patch within 12 hours or as directed by . 14 patch Active Additional Information Patient not taking.Reported on 01/27/2025 baclofen (LIORESAL) 10 mg tablet TAKE 1 TABLET BY MOUTH THREE TIMES DAILY FOR 7 DAYS NEEDED FOR MUSCLE SPASM Active doxycycline monohydrate (MONODOX) 100 mg capsule Take 1 capsule (100 mg total) by mouth daily 023 Active methylPREDNISolon e (MEDROL DOSEPACK) 4 mg Dosepack Active ondansetron ODT (ZOFRAN-ODT) 4 mg disintegrating tablet Take 1 tablet (4 mg total) by mouth every 6 (six) hours as needed Active clonazePAM (KlonoPIN) 1 mg tablet Take 1 tablet (1 mg total) by mouth 2 (two) times a day 024 Active Tymlos 80 mcg (3,120 mcg/1.56 mL) pen injectorIndicatio ns:Age-related osteoporosis with current pathological fracture, vertebra(e), initial encounter for fracture (HCC) INJECT 80MCG SUBCUTANEOUSLY INTO ABDOMEN ONCE DAILY (DISCARD 30 DAYS AFTER 1ST USE) 1.56 mL 11 025 Active calcium carbonate-vitamin D3 (Calcium 600 + D,3,) 1500 mg (600 mg elemental) -200 units per tablet Take 1 tablet by mouth 2 (two) times a day 180 tablet 3 025 2025 Active cholecalciferol (VITAMIN D-3) 2000 unit tablet Take 1 tablet (2,000 Units total) by mouth daily 90 tablet 3 025 2025 Active HYDROcodone-aceta minophen (NORCO) 5-325 mg per tabletIndications :Pain Take 1 tablet by mouth every 6 (six) hours as needed for pain 10 tablet 025 Active cholecalciferol (VITAMIN D-3) 2000 unit capsuleIndication s:Osteoporosis,Vi tamin D Deficiency Take 1 capsule (2,000 Units total) by mouth daily 90 capsule 3 024 2024 Discontinued calcium carbonate-vitamin D3 (Calcium 600 + D,3,) 1,500 mg (600 mg elemental)-200 unit capsuleIndication s:Osteoporosis,Vi tamin D Deficiency Take 600 mg by mouth daily Take 1 tab by mouth once or twice daily 90 capsule 3 024 2024 Discontinued Active Problems Problem Noted Date Diagnosed Date Compression fracture of T11 vertebra with routin e healing 11/08/2023 Overview (11/08/2023): Vertebral compression fracture C7, T11, T12 Age-related osteoporosis wit hout current pathological fracture 11/08/2023 Overview (11/08/2023): With multiple vertebral compression fractures 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 Not likely associated with any GI pathology. Will start Ativan 0.5 mg daily to help with the patient the symptoms specially the anxiety which can exacerbate her symptoms. Will re-evaluate and follow-up in 1 month. Colitis 09/17/2018 Assessment & Plan (07/17/2020 2:32 PM CDT): Patient has history of ulcerative colitis mainly in the rectum diagnosed in 2014. She is doing well with Apriso so will continue the same. Assessment & Plan (09/17/2018 1:20 PM CDT): Pt thought she had UC but pathology showed only non-specific inflammation. Colonoscopy displayed mild inflammation. Taking Apriso 0.375mg QD. Doing well. Has 3 normal BM's a day. No blood. Continue this medication. Nausea and vomiting 09/17/2018 Assessment & Plan (10/12/2020 3:00 PM CDT): Unclear etiology, may be somatic component of bipolar disorder Patient also has history of nausea vomiting, continue with promethazine p.r.n. Encouraged small, simple, bland meals in order to better tolerate food Will continue to monitor Will check routine labs today to evaluate for other causes of nausea Assessment & Plan (07/17/2020 2:30 PM CDT): I suspect symptoms has a little functional element. Previous endoscopic evaluation was unremarkable. Will try Phenergan twice daily on regular basis and follow-up in 1 month. Assessment & Plan (09/17/2018 1:25 PM CDT): Pt currently taking zofran which helps the nausea. Will send refill. She has history of esophagitis and gastropathy. Pt using medication marijuana and started about 1 month ago but N/V started 3 months ago so no correlation. She was taken off of her pain medication and nerve pill and noted the N/V started. Also had her meclizine stopped by neurology recently which she used for vertigo. Possible this may be functional issue but will do EGD to rule out other causes. Instructed to take omeprazole 40mg instead of 20mg and sent in more rx for zofran. Pt is NOT candidate for Reglan due to history of seizures. Difficulty swallowing 09/17/2018 Assessment & Plan (09/17/2018 1:21 PM CDT): Has problems swallowing a couple of times a week and ongoing for several months. EGD with Dr. Soliz. Tobacco dependence syndrome 11/22/2017 Assessment & Plan (02/21/2021 1:43 PM HEAD GRINDER): Stable; not well controlled Continues to smoke 1-1.5 packs per day; no current thoughts on cutting back cessation; continue to encourage complete cessation, reinforce health benefits of smoking cessation Assessment & Plan (10/12/2020 4:31 PM CDT): Poorly controlled, smoking 1-2 packs per day Has been smoking much since 2017 when she started taking care of grandchildren Encouraged smoking cessation, given she is on multiple psychiatric medications with noted recommend bupropion May consider nicotine replacement therapy in the future when patient is ready to quit Atypical angina 11/22/2017 Myalgia 11/15/2017 Other headache syndrome 11/06/2017 Seizure disorder 11/06/2017 Assessment & Plan (10/12/2020 4:28 PM CDT): Unclear etiology, per patient has history of brain surgery, has been adjusting psychiatric medications since then has been having seizure-like episodes Will continue to monitor, referral to neurology if symptoms persist Atypical chest pain 11/06/2017 Anxiety disorder 10/24/2017 Assessment & Plan (02/21/2021 1:41 PM HEAD GRINDER): Not well controlled, continues to have significant anxiety; especially related to injuries Continue to monitor; will hold off on benzodiazepines at this time Assessment & Plan (12/05/2020 2:35 PM CDT): Not well controlled; patient reports she was previously on Xanax and lorazepam; concern for refills given patient has multiple prescribers Referral placed to psychiatry for management; Continue with amitriptyline 50 mg at bedtime, BuSpar 15 mg b.i.d., duloxetine 30 mg b.i.d., gabapentin 300 mg t.i.d., Lamictal 100 mg daily Panic disorder without agoraphobia 10/24/2017 Chronic bilateral low back pain without sciatica 10/07/2017 Assessment & Plan (02/21/2021 1:40 PM HEAD GRINDER): Patient has acute worsening of pain after recently of falling down flight of stairs and landing on right side, has bruising on right buttocks, current pain is likely due to bruise muscle; potentially worsening chronic low back pain Reviewed imaging which demonstrated no fractures or acute injuries Patient to continue to follow-up with pain management Patient to continue medications for fibromyalgia; amitriptyline 50 mg at night, duloxetine 30 mg b.i.d.; patient may use hydrocodone 5 mg from emergency p.r.n. Patient can use Tylenol p.r.n. for severe pain Patient has allergies and reactions to NSAIDs Bipolar and related disorder 08/20/2017 Assessment & Plan (02/21/2021 1:40 PM HEAD GRINDER): Continues to have ups and Downs; stable on Lamictal; patient to follow-up with psychiatry for further management Assessment & Plan (10/12/2020 4:29 PM CDT): Not well controlled, daughter in 2016, since then she has had multiple breakdowns and feels around Patient is raising her grandchildren Follows with psychiatry, Dr. Gomez Patient has been transitioning from Xanax to Ativan Patient is on multiple depression medicines, including BuSpar, Cymbalta, quetiapine, Vraylar Will continue to work with psychiatry to manage patient's multiple medication needs Assessment & Plan (10/12/2020 2:59 PM CDT): Not well controlled, PHQ elevated to 22 today Patient follows with psychologist tomorrow, encouraged patient to talk to her psychiatrist she can order to get adjustments to medication Given multiple psychiatric medications hesitant to make any changes today Fibromyalgia 05/07/2017 Overview (05/07/2017): Fibromyalgia; Comments: ADA 11/14/2015 - Assessment & Plan (10/12/2020 4:30 PM CDT): Not well controlled, worsening Patient continues to have pain in multiple parts of body, mix of poorly controlled depression, fibromyalgia, as well as osteoarthritis in multiple joints Patient currently on duloxetine with recommend amitriptyline at bedtime to help with symptoms If no improvement, consider in her can given patient also has known neuropathy Simple chronic bronchitis 03/04/2017 Assessment & Plan (03/04/2017 3:18 PM HEAD GRINDER): Hx copd: Uses nebulizer twice daily prn with albuterol only. Will order nebulizer for replacement. Continues to smoke 1 ppd x 40+ years - encouraged to quit Thrush of mouth and esophagus 03/04/2017 Assessment & Plan (03/04/2017 1:47 PM HEAD GRINDER): Treat with nystatin swish and swallow. Right nephrolithiasis 03/04/2017 Assessment & Plan (03/04/2017 1:48 PM HEAD GRINDER): Renal condition is improving with treatment. Continue current treatment regimen. Stop smoking. Renal condition will be reassessed in 3 months. Chronic pain syndrome 10/19/2016 Assessment & Plan (10/19/2016 10:17 AM CDT): Will refer to pain management, who she has already been seeing, doctor switched offices Gastroesophageal reflux disease 10/18/2016 Overview (10/18/2016): GERD Assessment & Plan (07/17/2020 2:31 PM CDT): Patient is doing well with the Prilosec 20 mg daily. We discussed the gastroesophageal reflux disease diet again. Continue the same. Discussed side effects of smoking. Assessment & Plan (10/18/2016 12:50 PM CDT): I told her that her symptoms of difficulty swallowing and seemingly gasping for a breath were likely caused by gerd. She is on multiple medications and has a hx of gerd. She is not taking he prilosec daily. I encouraged her to take it daily. Psoriasis 10/18/2016 Overview (10/18/2016): psoriasis Acquired hypothyroidism 10/18/2016 Assessment & Plan (02/21/2021 1:42 PM HEAD GRINDER): Stable, weight has been fluctuating but generally stable; patient reports generalized low energy levels which may be related to mental health verses other underlying disease will check vitamin-D levels, discontinue gabapentin Assessment & Plan (10/18/2016 12:52 PM CDT): Recheck TSH today. Depression 10/18/2016 Overview (10/18/2016): Depression Assessment & Plan (03/04/2017 3:21 PM HEAD GRINDER): I told her that I recommend that she follow up with Psychiatry. She states she has a counselor at [place] but then said she has not seen them for while. She states she has been told that if she goes to see psychiatrist at [place] that she can't have me as her primary caregiver. I told her that does not sound correct but she will add scan. I went ahead and put in a referral for Psychiatry to the [facility] group system. Patient was agreeable for this. I told her I was not comfortable prescribing Seroquel on a p.r.n. basis. We could try trazodone at bedtime for p.r.n. sleep. Assessment & Plan (01/03/2017 4:38 PM CDT): Continue counseling. Continue abilify. Increase zoloft to 200mg daily. She recently had labs including a TSH which were all normal. Decrease xanax to BID. She reports that no other medication has helped the anxiety in the 20 years she's taken it. I told her that increasing the zoloft may help with her fatigue and lack of focus. I will not start another medication right now F/u 3 months Assessment & Plan (10/18/2016 12:54 PM CDT): Depression hx and now worsened with grieving process. We discussed the greiving process and normalcy of grieving. She is having difficulty getting out of bed. We reviewed her current medications. She is taking zoloft 200mg daily, xanax tid, abilify. We have abilify 5mg, but she thinks that another doctor has already increased that to 15mg daily. I added wellbutrin for now and have her return in 2-3 months for recheck. She states she has a counselor at [place]. I enocuraged her to seek out a psychiatrist there as well. Hypercholesterolemia 10/18/2016 Overview (10/18/2016): High cholesterol; Comments: ALVA 03/28/2016 - Numbness and tingling of both lower extremities Numbness and tingling of both upper extremities Resolved Problems Problem Noted Date Diagnosed Date Resolved Date MAGDA (acute kidney injury) 03/13/2017 Chronic diffuse otitis externa of right ear 10/15/2016 01/03/2017 Assessment & Plan (10/19/2016 12:53 PM CDT): Patient presents with 2 months otalgia and otorrhea in the right ear. Examination reveals diffuse erythema. Patient will start ciprodex otic suspension and follow up x1 week. Closed displaced fracture of fifth metatarsal bone of right foot with nonunion 10/01/2016 017 Fracture follow-up 10/01/2016 7 Displaced fracture of proxim al phalanx of left lesser toe(s), subsequent encounter for fracture with routine healing 10/01/2016 10/18/2016 Encounters Date Type Department Care Team Description 03/05/2025 10:00 AM HEAD GRINDER Office Visit [facility] Medicine and Primary Care at [address] [place] [address] Pelon Patel, Other closed intra-articular fracture of distal end of right radius, initial encounter (Primary Dx); Right wrist pain 03/05/2025 9:50 AM HEAD GRINDER Ancillary Procedure [facility] Imaging at [address] [address] Right wrist pain 03/05/2025 Results Follow-Up [address] [place] [address] Laura Vazquez DNP Vitamin D 25 hydroxy, Calcium level, Creatinine, eGFR 03/03/2025 2:40 PM HEAD GRINDER Lab [facility] [address] [place] [address] Age-related osteoporosis without current pathological fracture; History of vertebral compression fracture; Vitamin D deficiency 03/01/2025 Telephone [facility] Orthopedics and Sports Medicine [address] [place] [address] Toby Chase MD right wrist injury 02/28/2025 1:00 PM HEAD GRINDER - 02/28/2025 2:21 PM HEAD GRINDER Emergency [facility] Emergency Department [address] [place] [address] Kam Thomas MD Closed fracture of right wrist, initial encounter (Primary Dx); Acute cough Discharge Disposition: Discharge to home or self care 01/27/2025 1:00 PM HEAD GRINDER Office Visit [address] [place] [address] Laura Vazquez DNP Age-related osteoporosis without current pathological fracture (Primary Dx); History of vertebral compression fracture; Vitamin D deficiency 01/27/2025 12:30 PM HEAD GRINDER Clinical Support [address] [place] [address] Age-related osteoporosis without current pathological fracture (Primary Dx); History of vertebral compression fracture; Age-related osteoporosis with current pathological fracture, vertebra(e), initial encounter for fracture (HCC); Vitamin D deficiency 01/27/[address] [place] [address] Laura Vazquez DNP from Last 3 Months Immunizations Immunization Administration Dates Next Due Influenza, Quadrivalent, Spl it, Intramuscular 04/13/2016 Influenza, Quadrivalent, Spl it, Preservative Free, Intramuscular 12/26/2017,12/12/2016,12/12/2016,05/25,01/12/2015,01/12/2015,03/05/20 14 12/26/2018 Influenza, Trivalent, IM (MDV) 12/24/2011 Influenza, Unspecified 02/21/2021(Deferr ed: Patient Refused),03/25/2020(Deferred: Patient Refused),03/25/2020(Deferred: Patient Refused),03/25/2019(Deferred: Patient Refused) Pneumococcal Polysaccharide PPV23 08/29/2015 Surgical History Surgery Date Site/Laterality Comments TUBAL LIGATION 03/25/1986 - 03/24/1987 Bilateral tubal ligation OTHER SURGICAL HISTORY 03/25/2011 - 03/24/2012 Acute Asthmatic bronchitis w COPD: 24 hour observation HERNIA REPAIR Hernia repair OTHER SURGICAL HISTORY Lymph node removed BRAIN SURGERY brain aneurysm KIDNEY STONE SURGERY stents placed and then removed COLONOSCOPY 01/02/2016 Medical History Medical History Date Comments Hx Other Medical 1980 brain aneurysm Psoriasis psoriasis Seizure disorder (HCC) Seizure d isorder Depression Depression Peptic ulcer Peptic ulcer dis ease Anxiety disorder Anxiety Arthritis Arthritis Cerebrovascular accident (CVA) (HCC) Stroke Hx Other Medical Heart attack Bipolar affective disorder (HCC) Bipolar disorder; Comments: [facility] 11/14/2015 - Posttraumatic stress disorder PT SD; Comments: [facility] 11/14/2015 - Gastroesophageal reflux disease GERD History of transient cerebral ischemia H/O: TIA; Comments: [facility] 11/14/2015 - Chronic coronary artery disease Coronary artery disease Fibromyalgia Fibromyalgia; Co mments: [facility] 11/14/2015 - Osteoporosis Osteoporosis Hypercholesterolemia High choles terol; Comments: ALVA 03/28/2016 - Thyroid disease COPD (chronic obstructive pulmonary disease) Kidney stone Anxiety Fibromyalgia, primary Chronic pain disorder Smoking Hypothyroidism Migraines Peripheral neuropathy Hiatal hernia Family History Medical History Relation Name Comments Diabetes Father Diabetes mellit us; Hyperlipidemia Father Hyperlipidemi a; Hypertension Father Hypertension; Other Father Alive and well; Other Maternal Grandmother Cancer -in sinus cavity; Cause of : Cancer -in sinus cavity Depression Mother Depression; Suicidality Mother Suicide; Cause of : Suicide Seizures Other 1 Family history of Seizure disorder; Arthritis Other 2 Family history of Arthritis; Mental illness Other 3 Family histor y of Mental illness; Bone cancer Paternal Grandfather Cancer -bone; Cause of : Cancer -bone Broken bones Paternal Grandfather Osteoporosis Paternal Grandfather Hip fracture Neg Hx Kyphosis Neg Hx Scoliosis Neg Hx Relation Name Status Comments Father Alive Maternal Grandmother Mother (Age 30) Other 1 Other 2 Other 3 Paternal Grandfather (Age 80) Social History Tobacco Use Types Packs/Day Years Used Date Smoking Tobacco: Every Day Cigarettes 1 30 Smokeless Tobacco: Never Tobacco Cessation:Ready to Q uit: Not Asked; Counseling Given: Not Answered Comments:Smoking History Packs/day: 1 Packs Alcohol Use Standard Drinks/Week Comments Not Currently 0 (1 standard drink = 0.6 oz pur e alcohol) occasionally Social Connection and Isolation Panel Answer Date Recorded In a typical week, how many times do you talk on the phone with family, friends, or neighbors? More than three times a week 02/15/2021 How often do you get togethe r with friends or relatives? Three times a week 02/15/2021 How often do you attend chur ch or confucianism services? 1 to 4 times per year 02/15/2021 Do you belong to any clubs o r organizations such as restorationist groups, unions, fraternal or athletic groups, or school groups? No 02/15/2021 How often do you attend meet ings of the clubs or organizations you belong to? Never 02/15/2021 Are you , , di vorced, , never , or living with a partner? 02/15/2021 AUDIT-C Answer Date Recorded Q1: How often do you have a drink containing alcohol? Never 01/10/2023 Q2: How many drinks containi ng alcohol do you have on a typical day when you are drinking? Patient does not drink Q3: How often do you have si x or more drinks on one occasion? Never 01/10/2023 Overall Financial Resource Strain (CARDIA) Answe r Date Recorded How hard is it for you to pa y for the very basics like food, housing, medical care, and heating? Not very hard 02/15/2021 PHQ-2 Answer Date Recorded PHQ-2 Total Score (If total score is 3 or more points, staff should administer the PHQ-9) 0 02/21/2021 PRAPARE - Transportation Answer Date Re corded In the past 12 months, has l ack of transportation kept you from medical appointments or from getting medications? No 01/24 In the past 12 months, has l ack of transportation kept you from meetings, work, or from getting things needed for daily living? No 02/15/2021 Housing Stability Vital Sign Answer Aleksandr e Recorded In the last 12 months, was t here a time when you were not able to pay the mortgage or rent on time? No 02/15/2021 In the last 12 months, how many places have you lived? 1 02/15/2021 In the last 12 months, was t here a time when you did not have a steady place to sleep or slept in a halfway (including now)? No 02/15/2021 Personal Safety Answer Date Recorded Have you ever been in or are you currently in a harmful physical or emotional relationship or is someone making you feel afraid or unsafe? Denies 02/28/2025 Comments No Sex and Gender Information Value Date Recorded Sex Assigned at Not on file Legal Sex Female 1:01 AM HEAD GRINDER Gender Identity Not on file Sexual Orientation Not on file Obstetrics History Para Term AB IAB SAB Ectopic Multiple Livin g Live Births 3 3 3 0 0 0 0 0 Date Outcome GA Total Labor Labor/2nd/3rd Weight Sex Type Anes PTL Janna A1 A5 Name Clin Term Term Term Last Filed Vital Signs Vital Sign Reading Time Taken Comments Blood Pressure 125/84 03/05/2025 10:03 AM HEAD GRINDER Pulse 61 03/05/2025 10:03 AM HEAD GRINDER Temperature 36.3 C (97.4 F) 02/28/2025 12:47 PM HEAD GRINDER Respiratory Rate 20 02/28/2025 2:18 PM HEAD GRINDER Oxygen Saturation 95% 02/28/2025 1:55 PM HEAD GRINDER Inhaled Oxygen Concentration - - Weight 66.5 kg (146 lb 9.6 oz) 03/05/2025 10:03 AM HEAD GRINDER Height 158.8 cm (5' 2.5) 03/05/2025 10:03 AM CS T Body Mass Index 26.39 03/05/2025 10:03 AM HEAD GRINDER Plan of Treatment Health Maintenance Due Date Last Done Comments Cervical Cancer Screening 1960 DTaP/Tdap/Td Vaccine (1 - Tdap) 1972 Hepatitis B Screening 06/14/1979 Regular Well Visit/Exam 18-64 06/14/1979 Lung Cancer Screening 06/14/2011 Zoster Vaccine (1 of 2) 06/14/2011 Pneumococcal vaccine <65 (2 of 2 - PCV) 08/28/2016 08/29/2015 Breast Cancer Screening-Mammogram 06/06/2019 019, 06/10/2015 Depression Screening 02/21/2022 02/21/2021, 10/21/2020, 10/12/2020, Additional history exists Influenza Vaccine (#1) 2024 8, 12/12/2016, 12/12/2016, Additional history exists Colon Cancer Screening-Colonoscopy 02/06/2027 02/06/2017, 01/02/2016, 01/02/2016, Additional history exists Colon Cancer Screening-CT Colonography Discontinued 02/06/2017, 01/02/2016, 01/02/2016, Additional history exists Colon Cancer Screening-DNA Stool Discontinued 02/06/2017, 01/02/2016, 01/02/2016, Additional history exists Colon Cancer Screening-FIT Discontinued 02/06, 01/02/2016, 01/02/2016, Additional history exists Colon Cancer Screening-Sigmoidoscopy Discontinued 02/06/2017, 01/02/2016, 01/02/2016, Additional history exists Hepatitis C Screening Completed 10/12/2020 Goals Goal Patient Goal Type Associated Problems Recent Progress Patient-Stated? Author ACO SW Goal - Patient will be able to safely move about their home ACO Care Management On track(2020 4:06 PM HEAD GRINDER) Carito Haddad, DATA MANAGEMENT MANAGER Note: Problem: Barriers to Home Accessibility Interventions: - Assess home accessibility barriers. - Identify equipment or modifications needed to address barrier(s). - Research available resources to improve home accessibility. - Refer to appropriate resources or alternate housing options. Increase physical activity Exercise Ayanna Doe, RN Note: She was having in home Wellness program physical therapy. Medical Devices Implanted Type Area Blurb Writer Device Identifier Shelf Expiration Date Model / Serial / Lot Stent Ureteral Contour Percuflex Hydroplus Pigtail Curve L24 Cm Od6 Fr Taper Tip Bladder Kieran Low Profile Large Inner Lumen Latex Free - [id number] Implanted:Qty: 1 on 03/13/2017 by Montrell Fitzpatrick MD at [facility] Stent Right: Ureter [employer] Kaylynn 12/18/2019 180-222 / / [id number] Procedures Procedure Name Priority Date/Time Associated Diagnosis Comments XR WRIST RIGHT 3 OR MORE VIEWS Routine 03/05/2025 9:55 AM HEAD GRINDER Right wrist pain EGFR Routine 03/03/2025 2:46 PM HEAD GRINDER Age-related osteoporosis without current pathological fracture History of vertebral compression fracture Vitamin D deficiency CREATININE Routine 03/03/2025 2:46 PM HEAD GRINDER Age-related osteoporosis without current pathological fracture History of vertebral compression fracture Vitamin D deficiency CALCIUM LEVEL Routine 03/03/2025 2:46 PM HEAD GRINDER Age-related osteoporosis without current pathological fracture History of vertebral compression fracture Vitamin D deficiency VITAMIN D 25 HYDROXY Routine 03/03/2025 2:46 PM HEAD GRINDER Age-related osteoporosis without current pathological fracture History of vertebral compression fracture Vitamin D deficiency ED SPLINT APPLICATION Routine 02/28/2025 2:10 PM HEAD GRINDER INFLUENZA A/B, RSV, AND COVID-19 PCR STAT 02/28/2025 1:10 PM HEAD GRINDER XR WRIST RIGHT 3 OR MORE VIEWS ED 02/28/2025 1:04 PM HEAD GRINDER XR CHEST 1 VIEW ED 02/28/2025 1:04 PM HEAD GRINDER DEXA TBS AXIAL SKELETON BONE DENSITY 1 OR MORE SITES Schedule Routine, Read Routine (OP Routine) 01/27/2025 12:41 PM HEAD GRINDER Age-related osteoporosis with current pathological fracture, vertebra(e), initial encounter for fracture (HCC) History of vertebral compression fracture Vitamin D deficiency HEPATITIS C ANTIBODY Routine 10/12/2020 12:26 PM CDT Establishing care with new doctor, encounter for Need for hepatitis C screening test SCREENING MAMMOGRAM BILATERAL W MATTHEW Schedule Routine, Read Routine (OP Routine) 06/05/2018 12:38 PM CDT Breast cancer screening by mammogram COLONOSCOPY REPORT 02/06/2017 from Last 3 Months or Most Recently Relevant to Health Maintenance Results * XR Wrist Right 3 or More Views (03/05/2025 9:55 AM HEAD GRINDER) Anatomical Region Laterality Modality Upper Extremities, Wrist Right Digital Radiography 03/05/2025 10:0 1 AM HEAD GRINDER Impressions 03/05/2025 10:01 AM HEAD GRINDER 1. Grossly stable alignment of previously visualized distal right radial intra-articular fracture. Electronically signed by: Nery Ko D.O. Narrative 03/05/2025 10:01 AM HEAD GRINDER STUDY DESCRIPTION: XR WRIST RIGHT 3 OR MORE VIEWS ORDERING HEALTHCARE PROVIDER: PELON PATEL CLINICAL INDICATIONS: pain. COMPARISON: 02/28/2025 TECHNIQUE: 3 views right wrist. FINDINGS: There is redemonstration of a minimally displaced mildly comminuted intra-articular fracture involving the distal right radial metaphysis and epiphysis. The fracture extends to the radiocarpal joint without evidence of significant angulation or displacement. There is grossly stable soft tissue swelling. Procedure Note Nery Ko DO - 03/05/2025 STUDY DESCRIPTION: XR WRIST RIGHT 3 OR MORE VIEWS ORDERING HEALTHCARE PROVIDER: PELON PATEL CLINICAL INDICATIONS: pain. COMPARISON: 02/28/2025 TECHNIQUE: 3 views right wrist. FINDINGS: There is redemonstration of a minimally displaced mildly comminuted intra-articular fracture involving the distal right radial metaphysis and epiphysis. The fracture extends to the radiocarpal joint without evidence of significant angulation or displacement. There is grossly stable soft tissue swelling. IMPRESSION: 1. Grossly stable alignment of previously visualized distal right radial intra-articular fracture. Electronically signed by: Nery Ko D.O. us Pelon Patel DO IMG XR PROCEDURES Yaima l Result * eGFR (03/03/2025 2:46 PM HEAD GRINDER) eGFR >90 >=60 mL/min/1. 73 m2 Comment: Interpretive Data Reference Interval Normal >/= 90 mL/min/1.73m2 Mildly decreased* 60 - 89 mL/min/1.73m2 Mildly to moderately decreased 45 - 59 mL/min/1.73m2 Moderately to severely decreased 30 - 44 mL/min/1.73m2 Severely decreased 15 - 29 mL/min/1.73m2 Kidney Failure < 15 mL/min/1.73m2 *Relative to young adult level Estimated glomerular filtration rate is determined by the 2020 CKD-EPI equation recommended by the National Kidney Foundation (A Unifying Approach to GFR Estimation: Recommendations of the NKF-ASK Task Force on Reassessing the Inclusion of Race in Diagnosing Kidney Disease, JASN 2020). The CKD-EPI equation should not be used for patients with unstable renal function and has not been validated in children and those over 70. Current interpretive data was last reviewed 2021. Blood 03/03/2025 2:46 PM HEAD GRINDER 03/03/2025 4:18 PM HEAD GRINDER us Laura Vazquez [facility] LAB BLOOD ORDERABLES Final Resu lt [facility] (IAN) [address] [place] [address] * Vitamin D 25 hydroxy (03/03/2025 2:46 PM HEAD GRINDER) Vitamin D 25-OH 45 30 - 80 ng/mL Blood 03/03/2025 2:46 PM HEAD GRINDER 03/03/2025 4:18 PM HEAD GRINDER Laura Vazquez [facility] LAB BLOOD ORDERABLES Final Resu lt [facility] (IAN) 1 [facility] [place] [address] * Creatinine (03/03/2025 2:46 PM HEAD GRINDER) Creatinine 0.73 0.60 - 1.10 mg/dL Blood 03/03/2025 2:46 PM HEAD GRINDER 03/03/2025 4:18 PM HEAD GRINDER Laura Vazquez [facility] LAB BLOOD ORDERABLES Final Resu lt Performing Organization Address City/[facility]/ZIP Co de Phone Number [facility] ([place]) [address] [place] [address] * Calcium level (03/03/2025 2:46 PM HEAD GRINDER) Calcium 9.7 8.5 - 10.3 mg/dL Blood 03/03/2025 2:46 PM HEAD GRINDER 03/03/2025 4:18 PM HEAD GRINDER us Laura Vazquez [facility] LAB BLOOD ORDERABLES Final Resu lt Performing Organization Address City/[facility] Co de Phone Number [facility] ([place]) [address] [place] [address] * Splint Application (02/28/2025 2:10 PM HEAD GRINDER) Narrative Edna Cervantes PA - 02/28/2025 2:10 PM HEAD GRINDER Edna Cervantes PA 02/28/2025 2:11 PM Splint Application Date/Time: 02/28/2025 2:10 PM Performed by: Edna Cervantes PA Authorized by: Kam Thomas MD Sensation: Normal Laterality: Right Location: Wrist Wrist: R wrist Strapping: no Cast type: Short arm Splint type: Wrist Pain: Improved Sensation: Normal Patient tolerance of procedure: Tolerated well, no immediate complications us Kam Thomas MD IN CLINIC/BEDSIDE O RDERABLES Final Result * Influenza A/B, RSV, and COVID-19 PCR Nasopharyngeal (02/28/2025 1:10 PM HEAD GRINDER) COVID-19 RNA Negative Negative Influenza A RNA Negative Negative [facility] ([place]) Influenza B RNA Negative Negative [facility] (IAN) RSV RNA Negative [facility] ([place]) Comment: Interpretive data: Testing performed by [facility]. This test is performed using the [employer] Xpert Xpress CoV-2/Flu/RSV plus assay. This is a multiplex, real- time reverse transcriptase PCR assay intended for the qualitative detection of nucleic acid from SARS-CoV-2, influenza A, influenza B, and respiratory syncytial virus. This assay has been cleared by the [place] Food and Drug administration. The performance characteristics have been verified by the [facility]. Results must be considered in the clinical context, and a negative result does not rule out infection. Interpretive Data last revised 2023 Nasopharyngeal 02/28/2025 1: 10 PM HEAD GRINDER 02/28/2025 1:14 PM HEAD GRINDER Narrative [facility] ([place]) - 02/28/2025 1:54 PM HEAD GRINDER Is the Patient experiencing symptoms consistent with COVID?->Unknown us Edna EDDY LAB MICROBIOLOGY - GENERAL ORDCarlos CALDERON Final Result [facility] ([place]) [address] [facility] [place] [address] * XR Chest 1 Vw Portable (02/28/2025 1:04 PM HEAD GRINDER) Anatomical Region Laterality Modality Body, Chest N/A Computed Radiogr aphy 02/28/2025 1:18 PM HEAD GRINDER Impressions 02/28/2025 1:18 PM HEAD GRINDER No acute cardiopulmonary process. Electronically signed by: Albaro Loera M.D. Narrative 02/28/2025 1:18 PM HEAD GRINDER EXAMINATION: XR CHEST 1 VIEW HISTORY: productive cough. TECHNIQUE: SingleView of the chest was obtained. COMPARISON: Radiograph dated January 16, 2022 FINDINGS: HEART/MEDIASTINUM: Heart size is normal. Normal mediastinal and hilar contours. LUNGS/PLEURA: No focal consolidation or pneumothorax. No pleural effusion. HARDWARE/LINES/TUBES: None. BONES: No acute findings. OTHER: No other significant finding. Procedure Note Albaro Loera MD - 02/28/2025 EXAMINATION: XR CHEST 1 VIEW HISTORY: productive cough. TECHNIQUE: SingleView of the chest was obtained. COMPARISON: Radiograph dated January 16, 2022 FINDINGS: HEART/MEDIASTINUM: Heart size is normal. Normal mediastinal and hilar contours. LUNGS/PLEURA: No focal consolidation or pneumothorax. No pleural effusion. HARDWARE/LINES/TUBES: None. BONES: No acute findings. OTHER: No other significant finding. IMPRESSION: No acute cardiopulmonary process. Electronically signed by: Albaro Loera M.D. Edna EDDY IMG XR PROCEDURES Final Result * XR Wrist Right 3 or More Views (02/28/2025 1:04 PM HEAD GRINDER) Anatomical Region Laterality Modality Upper Extremities, Wrist Right Compute d Radiography Impressions 02/28/2025 1:12 PM HEAD GRINDER Suspected nondisplaced fracture of the distal radius best appreciated on the lateral view. Electronically signed by: Albaro Loera M.D. Narrative 02/28/2025 1:12 PM HEAD GRINDER EXAMINATION: XR WRIST LEFT 3 OR MORE VIEWS HISTORY: fall. TECHNIQUE: 3View of the right wristwas obtained. COMPARISON: None FINDINGS: BONES: There is a suspected nondisplaced fracture of the distal radius is best appreciated on the lateral view. There is no other evidence of acute fracture. JOINT SPACES: Mild arthritic changes first femoral cup reticulation. OTHER:No abnormal periosteal reaction is seen. SOFT TISSUES:Diffuse soft tissue swelling Edna EDDY [facility] XR PROCEDURES Edited Result - Final * Dexa TBS Axial Skeleton Bone Density 1 or more sites (01/27/2025 12:41 PM HEAD GRINDER) Anatomical Region Laterality Modality Wrist, Body N/A Radiographic Barbara ging Narrative 02/04/2025 10:48 AM HEAD GRINDER Patient Name: Divine Sosa Date of : 1960 Date of scan: 01/27/2025 Bone mineral density was performed on a [employer] Discovery Densitometer. Based on machine cross-calibration and precision studies the least significant changes of this densitometer is 0.024 g/cm2 at the spine, 0.020 g/cm2 at the total proximal femur, and 0.014g/cm2 at the forearm. HISTORY: This is a 64 y.o. postmenopausal female with a history of osteoporosis, thyroid disease, and ulcerative colitis. She reports that she has been smoking cigarettes. She has a 30 pack-year smoking history. She has never used smokeless tobacco. Currently on treatment with calcium, vitamin D, abaloparatide (Tymlos), anti-seizure medications, and thyroid hormone, previously treated with glucocorticoids, and current complaint of back pain, neck pain, and leg pain. INDICATIONS: Menopause status, treatment monitoring, history of prior vertebral fracture, history of glucocorticoids use, and history of osteoporosis. FINDINGS: BONE MINERAL DENSITY OF THE LUMBAR SPINE Bone Mineral Density (BMD) of the lumbar spine was measured from L1-L4 and the average density was calculated to be 0.804 gm/cm2. This corresponds to a T-score (standard deviations from the mean of young adults) of -2.2. When compared to the previous study of 05/26/2024 there has been a 0.057 gm/cm (7.6%) increase in bone density that is considered significant. BONE MINERAL DENSITY OF THE PROXIMAL FEMUR Bone Mineral Density (BMD) of the left hip total was found to be 0.717 gm/cm2. This corresponds to a T-score standard deviations from the mean of young adults of -1.8. Femoral neck is 0.579 gm/cm2 with a T-score (standard deviations from the mean of young adults) of -2.4. When compared to the previous study of 05/26/2024 there has been no significant changes in bone density. SUMMARY: Bone mineral density shows evidence of low bone mass at the lumbar spine and proximal femur and moderately increased fracture risk (Osteopenia). There has been a significant increase in bone density since previous measurement. The lumbar spine Trabecular Bone Score is 1.178 which suggests degraded bone microarchitecture compared to the general population. Final decisions regarding diagnostic or therapeutic recommendations should include BMD, TBS, additional clinical risk factors as well the clinical context of the patient. Please see attached TBS results for further details. ADDITIONAL COMMENTS: Postmenopausal Women and Men Over 50: Diagnostic criteria: Osteoporosis: BMD at or below -2.5 T-score; Osteopenia (low bone mass): BMD between -1.0 and -2.5 T-score. If the patient has a history of a fragility fracture, a fracture that occurred with trauma equivalent to a fall from a standing position or less, then the diagnosis is osteoporosis regardless of bone density. The history and data sections of the bone mineral density scan were prepared by Giovanna Joy) CHANDRA who is accredited by the International Society of Clinical Densitometry. The overall patient assessment and scan interpretation were performed by Ata Delgado M.D. who is certified by the International Society of Clinical Densitometry. [id number] Laura Vazquez DNP IMG DXA PROCEDURES Final Result * Hepatitis C antibody (10/12/2020 12:26 PM CDT) Hep C Ab Nonreactive Nonreactive [facility] Comment: Interpretive Data Nonreactive: Antibodies to HCV not detected. Does NOT exclude the possibility of recent exposure to HCV. Equivocal: Equivocal for HCV antibodies. Supplemental molecular testing will be automatically performed to determine infection status in accordance with current CDC screening recommendations. Reactive: Positive for HCV antibodies. This may represent current or past HCV infection. Supplemental molecular testing will be automatically performed to determine current infection status in accordance with current CDC screening recommendations. Interpretive data was last revised on 2019. Blood specimen (specimen) 10/12/2020 12:26 PM CDT 10/12/2020 6:39 PM CDT Parveen Garcia MD LAB MICROBIOLOGY - [facility] L ORDERABLES Final Result [facility] [id number] Department [place] [address] * Screening Mammogram Bilateral W Matthew (06/05/2018 12:38 PM CDT) Anatomical Region Laterality Modality Breast Bilateral Mammography 06/05/2018 2:32 PM CDT Impressions 06/05/2018 2:33 PM CDT BI-RADS CATEGORY 2: BENIGN FINDINGS. RECOMMEND ROUTINE FOLLOW-UP. Electronically signed by: Michael Menon M.D. Narrative 06/05/2018 2:33 PM CDT SCREENING MAMMOGRAM BILATERAL W MATTHEW HISTORY: Routine screening, no current complaints. COMPARISON: 06/10/2015 FINDINGS: Breast density: Scattered fibroglandular densities. There has been no significant interval change. Scattered benign calcifications are present which are unchanged. A surgical clip marker is present in the central left breast from prior biopsy. There are no suspicious masses, microcalcifications, or architectural distortions. Tomographic images demonstrate no additional findings. Digital technology was employed plus computer aided detection software (R2) was utilized in interpretation of these images. This facility utilizes a reminder system to notify patient's of yearly mammograms. Robert Agrawal MD IMG MAMMO PROCEDURES Final Result * COLONOSCOPY REPORT (02/06/2017) Anatomical Region Laterality Modality Other Provider Scanning GI PROCEDURE ORDERABLES Final Result from Last 3 Months or Most Recently Relevant to Health Maintenance Insurance [employer] MEDICARE HMO [facility] MEDICARE ADVANTAGE [employer] [facility] MEDICARE ADVANTAGE Advance Directives For more information, please contact: [phone] * Full Code (Latest Code Status on File) Date Activated Date Inactivated Comments 09/24/2018 11:19 AM 09/24/2018 6:25 PM * Full Code Date Activated Date Inactivated Comments 09/24/2018 11:18 AM 09/24/2018 11:19 AM * Full Code Date Activated Date Inactivated Comments 11/06/2017 3:49 AM 11/06/2017 5:34 PM * Full Code Date Activated Date Inactivated Comments 03/13/2017 4:02 AM 03/13/2017 9:49 PM * Full Code Date Activated Date Inactivated Comments 03/12/2017 6:31 PM 03/13/2017 4:02 AM Care Teams Early Childhood Coordinator Relationship Specialty Start Date End Date Jose Roberto Uribe MD PCP - General Family Practice 02/28/22 Unknown, Notinfile 12/04/18 Mikey Carlton MD Consulting Physician Pain Management 07/18/17 [place] [id number] [facility] [address] [place] [address] Consulting Physician Psychiatry 07/18/17 [place] [id number] [facility] [address] [place] [address] Nurse Practitioner Pain Management 05/22/18 [place] [id number] [facility] [address] [place] [address] Consulting Physician Neurology 05/22/18 [place] [address] [facility] [address] [place] [address] Consulting Physician Gastroenterology 05/22/18 Cheri Ames Line Runner Addiction Medicine 06/16/20
--- OUTSIDE RECORDS SUMMARY | 2025-03-11 15:14 | XMS_ITS | Encounter Summary ---
Author Organization [facility] Address [address] [place] [address] Phone Care Team Providers Care Inventory Checker Name Role Phone Unknown, Notinfile Unavailable Unavailable Mikey Carlton MD Unavailable Yvan Morales MD Unavailable Gen Moreno NP Unavailable Carol WELLER MD, Carlos M. Unavailable Jenn Soliz MD Unavailable [phone] Cheri Ames Unavailable Unavailable Jose Roberto Uribe MD Primary Care Provider [phone] Encounter Details Date Type Department Care Team (Late st Contact Info) Description 03/05/2025 Results Follow-Up [facility] [address] [facility] Medical Office Building [address] [place] [id number] Laura Vazquez DNP [address] [facility] [address] [place] [address] Vitamin D 25 hydroxy, Calcium level, Creatinine, eGFR Social History Tobacco Use Types Packs/Day Years Used Date Smoking Tobacco: Every Day Cigarettes 1 30 Smokeless Tobacco: Never Comments:Smoking History Pac [...] often do you attend chur ch or samaritan services? 1 to 4 times per year 02/15/2021 Do you belong to any clubs o r organizations such as congregation groups, unions, fraternal or athletic groups, or [...] place to sleep or slept in a half-way (including now)? No 02/15/2021 Personal Safety Answer Date Recorded Have you ever been in or are you currently in a harmful physical or emotional relationship or is someone making you feel afraid or unsafe? Denies 02/28/2025 Comments No Sex and Gender Information Value Date Recorded Sex Assigned at Not on file Legal Sex Female 1:01 AM MOBILE BATTERY TECHNICIAN Gender Identity Not on file Sexual Orientation Not on file documented as of this encounter Plan of Treatment Not on file documented as of this encounter Goals Goal Patient Goal Type Associated Problems Recent Progress Patient-Stated? Author ACO SW Goal - Patient will be able to safely move about their home ACO Care Management On track(2020 4:06 PM MOBILE BATTERY TECHNICIAN) Carito Haddad, SAFETY EQUIPMENT TESTING SPECIALIST Note: Problem: Barriers to Home Accessibility Interventions: [...] Diagnoses Not on filedocumented in this encounter Care Teams Inventory Checker Relationship Specialty Start Date End Date Jose Roberto Uribe MD PCP - General Family Practice 02/28/22 Unknown, Notinfile 12/04/18 Mikey Carlton MD Consulting Physician Pain Management 07/18/17 [place] [id number] [address] Consulting Physician Psychiatry 07/18/17 [place] [address] [address] [address] Nurse Practitioner Pain Management 05/22/18 [place] [address] [facility] [address] [place] [address] Consulting Physician Neurology 05/22/18 [place] [address] [facility] [address] [place] [address] Consulting Physician Gastroenterology 05/22/18 Cheri Ames Over Hauler Helper Addiction Medicine 06/16/20 documented as of this encounter
--- OUTSIDE RECORDS SUMMARY | 2025-03-11 15:14 | XMS_ITS | Clinical Summary ---
Author Organization [facility] Address [address] [place] [address] Care Team Providers Care Shuttle Truck Driver Name Role Phone Jose Roberto Uribe MD Primary Care Provider [phone] Source Comments [facility],non-owned Affiliates and Associated Physician Practices is amultiple site organization consisting of ambulatory clinics and hospital sitesin [place], [place], [place] and [place]. This disclosure is being madepursuant to the Care Everywhere program and may not contain all information available regarding this patient. Last updated 17.[facility] Allergies Active Allergy Reactions Criticality Noted Date Comments Naproxen 10/26/2013 Valproic Acid 10/26/2013 Phenytoin 10/26/2013 Penicillins 10/26/2013 Carbamazepine 10/26/2013 Medications * This document contains information received from the source organization and may not represent a complete record from that organization. * Be aware that medications may not be up to date on this document. Alwaysverify current medications with the patient. piroxicam (FELDENE) 20 MG capsule TAKE 1 CAPSULE BY MOUTH ONCE DAILY. 30 Cap 11 08/19/2014 Active piroxicam (FELDENE) 20 MG capsule TAKE 1 CAPSULE BY MOUTH ONCE DAILY. 30 Cap 11 05/05/2015 Active Social History Tobacco Use Types Packs/Day Years Used Date Smoking Tobacco: Every Day Cigarettes 1 20 Smokeless Tobacco: Never Alcohol Use Standard Drinks/Week Comments Yes 5 (1 standard drink = 0.6 oz pur e alcohol) Comments Unknown Sex and Gender Information Value Date Recorded Sex Assigned at Not on file Legal Sex Female 12:46 PM CDT Gender Identity Not on file Sexual Orientation Not on file Occupation Industry Job Start Date Job End Date DISABLED Not on file Not on file Not on file Last Filed Vital Signs Vital Sign Reading Time Taken Comments Blood Pressure - - Pulse - - Temperature - - Respiratory Rate - - Oxygen Saturation - - Inhaled Oxygen Concentration - - Weight 72.1 kg (159 lb) 10/26/2013 11:19 AM CDT Height 162.6 cm (5' 4) 10/26/2013 11:19 AM CDT Body Mass Index 27.29 10/26/2013 11:19 AM CDT Plan of Treatment Health Maintenance Due Date Last Done Comments COLOGUARD (AGES 45-75) - COL ON CA SCREENING 1961 COLON MONITORING 1961 COLONOSCOPY - COLON CA SCREENING 1961 CT COLONOGRAPHY - COLON CA SCREENING 1961 Colorectal Cancer Screening 1961 FIT - COLON CA SCREENING 1961 FLEX SIG - COLON CA SCREENING 1961 LIPID TESTING 1961 MAMMOGRAM 1961 HIV SCREENING 1976 HEPATITIS C SCREENING 06/09/1979 DTAP/TDAP/TD VACCINES (1 - Tdap) 1980 PNEUMOCOCCAL VACCINE 50+ (1 of 1 - PCV) 06/14/2011 ZOSTER VACCINE (1 of 2) 06/14/2011 DEPRESSION SCREENING 03/25/2024 COVID-19 VACCINE (1 - 2024-2 6 season) 2024 INFLUENZA VACCINE (#1) 2024 Respiratory Syncytial Virus (RSV) Vaccine Pt: or over 60 yrs (1 - 1-dose 75+ series) 2036 HEPATITIS B VACCINE Aged Out No longe r eligible based on patient's age to complete this topic HIB VACCINE Aged Out No longer eligi ble based on patient's age to complete this topic HPV VACCINE Aged Out No longer eligi ble based on patient's age to complete this topic MENINGOCOCCAL (Group B) VACC INE SHARED DECISION-MAKING Aged Out No longer eligibl e based on patient's age to complete this topic MENINGOCOCCAL GROUPS A/C/Y/W VACCINE Aged Out No longer eligible b ased on patient's age to complete this topic Insurance MEDICAID - OUT OF [facility] MEDICARE MEDICAID - [place] Care Teams Shuttle Truck Driver Relationship Specialty Start Date End Date Jose Roberto Uribe MD [address] [place] [address] PCP - General 06/12/22
== END 2025-03-11 14:11 | disposition home or self-care (01) ==
PROVIDERS: PCP Family Medicine; Visit Provider Family Medicine
DX: Z12.2 Encounter for screening for malignant neoplasm of respiratory organs (principal); M79.646 Pain in unspecified finger(s); Z87.891 Personal history of nicotine dependence
CPT/HCPCS: 71271; 73140